=== PATIENT | female | born 1935 | race Caucasian/White ===

== ENCOUNTER 2016-06-27 21:06 | Inpatient (IN) | payer OTHER ==
[~2016-06-27] VITALS: Ht 165.1 cm; Wt 75.3 kg
[~2016-06-27 21:06] MED LIST: ASPEC81 PO; CALCTAB5 PO; CHOL20007 PO; OMEG10007 PO; OMEP20CA59 PO; PRMVC PV; SIMV20TA2 PO
[2016-06-27] MEDS ORDERED: ASPI1TAB83 PO (21:43)
[2016-06-27] MEDS ORDERED: CALCTAB5 PO (21:43)
[2016-06-27] MEDS ORDERED: PRMVC PV (21:43)
[2016-06-27] MEDS ORDERED: HydrALAZINE HCL 20 MG/ML VIAL IV. STA ×2 (21:52→23:02)
--- NOTE | 2016-06-27 21:53 | EMERGENCY ROOM VISIT NOTE ---
History Report prepared by Lokiibcecile: Bernardo Gorman Under the Supervision of: Dr. Dewey Melendrez D.O. First contact with patient: 21:46 Chief Complaint: HYPERTENSION Stated Complaint: DIZZY,HIGH BP History of Present Illness The patient is an 81 year old female who presents to the Emergency Room with complaints of worsening hypertension throughout the day today. The patient is not hypertensive at baseline and does not take any medications for blood pressure. She woke up today feeling dizzy, shaky, and generally weak which prompted her to check her blood pressure. The patient's systolic pressure the first time she measured it was 157. It was 184 when she checked it prior to coming to the ED. She also notes some tingling in the left arm. The patient and her family deny confusion, blurry vision, speech slurring, or difficulty ambulating. She is not on any blood thinners. The patient has a history of UTI. Source of History: patient, family Onset: today Position: other (cardiovascular) Symptom Intensity: up to 184 systolic Quality: other (hypertensive) Timing: worsening Associated Symptoms: + numbness (left arm), + weakness (general) Review of Systems See HPI for pertinent positives and negatives. A total of ten systems were reviewed and were otherwise negative. Past Medical & Surgical Medical Problems: (1) Kidney stones (2) Skin problems (3) Stomach problems (4) Stroke-like symptoms (5) Urinary problems Surgical Problems: (1) H/O lumpectomy (2) H/O: hysterectomy Family History FH: cancer FH: gallbladder disease FH: heart disease Hypertension Kidney disease or stones Social History Smoking Status: Never Smoker Marital Status: Housing Status: lives with significant other Occupation Status: retired Current/Historical Medications Scheduled Aspirin (Aspirin), 81 MG PO DAILY Calcium Carbonate (Caltrate 600), 1,500 MG PO DAILY Cholecalciferol (Vitamin D3), 2,000 UNIT PO DAILY Fish Oil ([place]-3), 4,000 MG PO DAILY Omeprazole (Prilosec), 20 MG PO DAILY Simvastatin (Zocor), 20 MG PO DAILY Scheduled PRN Estrogens, Conjugated (Premarin), 1 APPLN PV HS PRN for DRYNESS Allergies Coded Allergies: Sulfa Drugs (Verified Allergy, Unknown, 06/27/16) Physical Exam Vital Signs Date Time Temp Pulse Resp B/P Pulse Ox O2 Delivery O2 Flow Rate FiO2 06/27/16 23:33 87 20 171/85 95 Room Air 06/27/16 23:00 80 20 170/89 95 Room Air 06/27/16 22:39 79 18 161/97 96 Room Air 06/27/16 22:19 76 20 160/88 92 Room Air 06/27/16 22:01 93 Room Air 06/27/16 22:01 74 18 181/93 93 Room Air 06/27/16 21:29 78 06/27/16 21:27 78 18 181/90 94 Room Air 06/27/16 21:09 36.9 88 20 204/84 94 Room Air Physical Exam GENERAL: Awake, alert, well-appearing, in no distress HENT: Normocephalic, atraumatic. Oropharynx unremarkable. EYES: Normal conjunctiva. Sclera non-icteric. NECK: Supple. No nuchal rigidity. FROM. No JVD. RESPIRATORY: Clear to auscultation. CARDIAC: Regular rate, normal rhythm. Extremities warm and well perfused. Pulses equal. ABDOMEN: Soft, non-distended. No tenderness to palpation. No rebound or guarding. No masses. RECTAL: Deferred. MUSCULOSKELETAL: Chest examination reveals no tenderness. The back is symmetrical on inspection without obvious abnormality. There is no CVA tenderness to palpation. No joint edema. LOWER EXTREMITIES: Calves are equal size bilaterally and non-tender. No edema. No discoloration. NEURO: Normal sensorium. No sensory or motor deficits noted. SKIN: No rash or jaundice noted. PSYCH: Anxious-appearing. Medical Decision & Procedures ER Provider Diagnostic Interpretation: X ray results as stated below per my interpretation and radiologist interpretation. Other radiology results as stated below per my review and radiologist interpretation CHEST ONE VIEW PORTABLE CLINICAL HISTORY: Severe hypertension. COMPARISON STUDY: Chest radiograph July 10, 2013. FINDINGS: Lung volumes are normal. There is no evidence of pulmonary edema. No pneumothorax or pleural effusion is present. Mild bibasilar opacities suggest atelectasis. Cardiac size is at the upper limits of normal. There is no consolidation. IMPRESSION: No acute cardiopulmonary findings. Electronically signed by: Iglesia Adams M.D. 06/27/2016 10:12 PM Dictated Date/Time: 06/27/2016 10:[address] OF THE HEAD WITHOUT CONTRAST CLINICAL HISTORY: Dizzy. Weakness. Hypertension. COMPARISON STUDY: Head CT July 10, 2013. CT DOSE: 614.27 mGy.cm TECHNIQUE: Helical axial images of the head were obtained without IV contrast. Automated exposure control was utilized for the study. FINDINGS: No acute intracranial hemorrhage, midline shift or mass effect is present. Ventricular system is stable. Basilar cisterns are patent. There are no extra axial collections. Mays-white differentiation is preserved. There are no findings to suggest acute dural sinus thrombosis or acute territorial infarct. There is mild mucosal thickening of the right maxillary sinus. There are no significant calvarial abnormalities. Mastoid air cells are clear. IMPRESSION: No acute intracranial findings. Electronically signed by: Iglesia Adams M.D. 06/27/2016 10:42 PM Dictated Date/Time: 06/27/2016 10:37 PM Laboratory Results 06/27/16 21:35 Red Blood Count 4.30, Mean Corpuscular Volume 85.8, Mean Corpuscular Hemoglobin 29.3, Mean Corpuscular Hemoglobin Concent 34.1, Mean Platelet Volume 8.8, Neutrophils (%) (Auto) 42.2, Lymphocytes (%) (Auto) 41.9, Monocytes (%) (Auto) 13.0, Eosinophils (%) (Auto) 2.5, Basophils (%) (Auto) 0.2, Neutrophils # (Auto ) 1.84, Lymphocytes # (Auto) 1.83, Monocytes # (Auto) 0.57, Eosinophils # (Auto ) 0.11, Basophils # (Auto) 0.01 06/27/16 21:35 Test 06/27/16 21:35 06/27/16 21:56 06/27/16 22:25 White Blood Count 4.37 K/uL (4.8-10.8) Red Blood Count 4.30 M/uL (4.2-5.4) Hemoglobin 12.6 g/dL (12.0-16.0) Hematocrit 36.9 % (37-47) Mean Corpuscular Volume 85.8 fL (80-100) Mean Corpuscular Hemoglobin 29.3 pg (25-34) Mean Corpuscular Hemoglobin Concent 34.1 g/dl (32-36) Platelet Count 235 K/uL (130-400) Mean Platelet Volume 8.8 fL (7.4-10.4) Neutrophils (%) (Auto) 42.2 % Lymphocytes (%) (Auto) 41.9 % Monocytes (%) (Auto) 13.0 % Eosinophils (%) (Auto) 2.5 % Basophils (%) (Auto) 0.2 % Neutrophils # (Auto) 1.84 K/uL (1.4-6.5) Lymphocytes # (Auto) 1.83 K/uL (1.2-3.4) Monocytes # (Auto) 0.57 K/uL (0.11-0.59) Eosinophils # (Auto) 0.11 K/uL (0-0.5) Basophils # (Auto) 0.01 K/uL (0-0.2) RDW Standard Deviation 46.2 fL (36.4-46.3) RDW Coefficient of Variation 14.8 % (11.5-14.5) Immature Granulocyte % (Auto) 0.2 % Immature Granulocyte # (Auto) 0.01 K/uL (0.00-0.02) Prothrombin Time 10.5 SECONDS (9.0-12.0) Prothromb Time International Ratio 1.0 (0.9-1.1) Activated Partial Thromboplast Time 26.8 SECONDS (21.0-31.0) Partial Thromboplastin Ratio 1.0 Anion Gap 9.0 mmol/L (3-11) Est Creatinine Clear Calc Drug Dose 40.9 ml/min Estimated GFR () 54.5 Estimated GFR (Non- 47.0 BUN/Creatinine Ratio 11.3 (10-20) Calcium Level 9.1 mg/dl (8.5-10.1) Total Bilirubin 0.3 mg/dl (0.2-1) Direct Bilirubin < 0.1 mg/dl (0-0.2) Aspartate Amino Transf (AST/SGOT) 15 U/L (15-37) Alanine Aminotransferase (ALT/SGPT) 24 U/L (12-78) Alkaline Phosphatase 57 U/L (45-117) Total Protein 7.2 gm/dl (6.4-8.2) Albumin 3.8 gm/dl (3.4-5.0) Bedside Troponin I 0.000 ng/ml (0-0.045) Urine Color YELLOW Urine Appearance CLEAR (CLEAR) Urine pH 7.0 (4.5-7.5) Urine Specific [place] 1.005 (1.000-1.030) Urine Protein NEG (NEG) Urine Glucose (UA) NEG (NEG) Urine Ketones NEG (NEG) Urine Occult Blood NEG (NEG) Urine Nitrite NEG (NEG) Urine Bilirubin NEG (NEG) Urine Urobilinogen NEG (NEG) Urine Leukocyte Esterase NEG (NEG) Laboratory results reviewed by me Medications Administered Medications (Trade) Dose Ordered Sig/Jeanie Route Start Time Stop Time Status Last Admin Dose Admin Hydralazine HCl (HydrALAZINE INJ) 10 mg NOW STAT IV. 06/27/16 21:52 06/27/16 21:53 DC 06/27/16 21:59 10 MG Hydralazine HCl (HydrALAZINE INJ) 10 mg NOW STAT IV. 06/27/16 23:02 06/27/16 23:03 DC 06/27/16 23:19 10 MG ECG Indication: other (hypertension) Rate (beats per minute): 81 Rhythm: normal sinus Findings: no acute ischemic change, no ectopy, other (normal axis, normal intervals) ED Course 2147: The patient was evaluated in room A4b. A complete history and physical exam was performed. 2151: Hydralazine 10 mg IV. 2299: The patient still doesn't feel well. Her blood pressure is still high. 2301: Hydralazine 10 mg IV. 2307: Discussed the case with Kenneth Aguilar Hospitalist. The patient will be evaluated. Medical Decision Differential diagnosis includes hypertensive episode vs crisis vs urgency, TIA, CVA, dehydration, UTI. Reexamination at 2309 patient was given IV hydralazine blood pressure 167/90. Patient has symptoms suggestive of TIA in the past week. Patient will be admitted. Patient currently has an NIH score of 0 she is not a TPA candidate at this time. I discussed the workup with the patient and patient's family at bedside. I discussed workup the hospitalist at 0 Consults Time Called: 2299 Consulting Physician: [facility] Returned Call: [phone]: [facility] The patient will be evaluated. Impression Primary Impression: Hypertension Additional Impression: TIA (transient ischemic attack) Scribe Attestation The scribe's documentation has been prepared under my direction and personally reviewed by me in its entirety. I confirm that the note above accurately reflects all work, treatment, procedures, and medical decision making performed by me. Departure Information Dispostion Being Evaluated By Hospitalist Referrals Iona Joe M.D. (PCP) Patient Instructions [facility] Stroke History Stroke t-PA Criteria Reviewed Does NOT meet criteria for t-PA Reason t-PA Not Given Treatment not indicated Problem Qualifiers Primary Impression: Hypertension Hypertension type: essential hypertension Qualified Codes: I10 - Essential ( primary) hypertension Additional Impression: TIA (transient ischemic attack) Transient cerebral ischemia type: unspecified Qualified Codes: G45.9 - Transient cerebral ischemic attack, unspecified
[2016-06-27 22:07] LABS: BASO % 0.2 %; BASO ABS # 0.01 K/uL (0-0.2); COMPLETE YES; EOS % 2.5 %; HEMATOCRIT 36.9 % (37-47); IG% 0.2 %; LYMPH % 41.9 %; LYMPH ABS # 1.83 K/uL (1.2-3.4); MEAN CELL VOLUME 85.8 fL (80-100); MEAN CORPUSCULAR HEMOGLOBIN 29.3 pg (25-34); MEAN CORPUSCULAR HGB CONC 34.1 g/dl (32-36); MEAN PLATELET VOLUME 8.8 fL (7.4-10.4); NEUT % 42.2 %; PLATELET COUNT 235 K/uL (130-400); WHITE BLOOD COUNT 4.37 K/uL (4.8-10.8)
--- NOTE | 2016-06-27 22:14 | DIAGNOSTIC IMAGING REPORT ---
CHEST ONE VIEW PORTABLE CLINICAL HISTORY: Severe hypertension. COMPARISON STUDY: Chest radiograph July 10, 2013. FINDINGS: Lung volumes are normal. There is no evidence of pulmonary edema. No pneumothorax or pleural effusion is present. Mild bibasilar opacities suggest atelectasis. Cardiac size is at the upper limits of normal. There is no consolidation. IMPRESSION: No acute cardiopulmonary findings. Electronically signed by: Iglesia Adams M.D. 06/27/2016 10:12 PM Dictated Date/Time: 06/27/2016 10:12 PM
[2016-06-27 22:16] LABS: PROTHROMBIN TIME (PATIENT) 10.5 SECONDS (9.0-12.0)
[2016-06-27 22:36] LABS: ALT/SGPT 24 U/L (12-78); BLOOD UREA NITROGEN 12 mg/dl (7-18); BUN/CREATININE RATIO 11.3 (10-20); CARBON DIOXIDE 24 mmol/L (21-32); CHLORIDE 107 mmol/L (98-107); GLUCOSE 107 mg/dl (70-99); POTASSIUM 3.8 mmol/L (3.5-5.1); SODIUM 140 mmol/L (136-145)
[2016-06-27 22:38] LABS: ALKALINE PHOSPHATASE 57 U/L (45-117); AST/SGOT 15 U/L (15-37)
--- NOTE | 2016-06-27 22:43 | DIAGNOSTIC IMAGING REPORT ---
CT OF THE HEAD WITHOUT CONTRAST CLINICAL HISTORY: Dizzy. Weakness. Hypertension. COMPARISON STUDY: Head CT July 10, 2013. CT DOSE: 614.27 mGy.cm TECHNIQUE: Helical axial images of the head were obtained without IV contrast. Automated exposure control was utilized for the study. FINDINGS: No acute intracranial hemorrhage, midline shift or mass effect is present. Ventricular system is stable. Basilar cisterns are patent. There are no extra axial collections. Mays-white differentiation is preserved. There are no findings to suggest acute dural sinus thrombosis or acute territorial infarct. There is mild mucosal thickening of the right maxillary sinus. There are no significant calvarial abnormalities. Mastoid air cells are clear. IMPRESSION: No acute intracranial findings. Electronically signed by: Iglesia Adams M.D. 06/27/2016 10:42 PM Dictated Date/Time: 06/27/2016 10:37 PM
[2016-06-27 22:44] LABS: CALCIUM 9.1 mg/dl (8.5-10.1)
[2016-06-27 22:44] LABS: MANUAL MICROSCOPIC REQUIRED? NO; REVIEW REQ? NO; URINE APPEARANCE CLEAR (CLEAR); URINE BILIRUBIN NEG (NEG); URINE COLOR YELLOW; URINE NITRITE NEG (NEG); URINE SPECIFIC GRAVITY 1.005 (1.000-1.030); UROBILINOGEN NEG (NEG)
--- NOTE | 2016-06-27 23:16 | History and Physical ---
History & Physical Date & Time of Service: Jun 27, 2016 at 23:16 Chief Complaint: Dizzy,High Bp Primary Care Physician: Iona Joe M.D. History of Present Illness Source: patient, family Patient is a 81 yr old female with PMH of HLP, GERD, Nephrolithiasis and Colon polyp presents with history of dizziness and left arm weakness since . Patient states she checked her blood pressure today and was very elevated and so came to ED for evaluation as she does not have history of hypertension. Also states having nausea, chills and feels weak in her legs. Denies any history of fever, headache, blurry vision, chest pain, SOB, palpitations, change in vision , head trauma, fall, bowel/bladder incontinence, problems speech with speech or facial deformity, cough , wheezing but states " I feel funny in my head". Past Medical/Surgical History Medical Problems: (1) Kidney stones Status: Resolved (2) Skin problems Status: Chronic (3) Stomach problems Status: Chronic (4) Urinary problems Status: Chronic Surgical Problems: (1) H/O lumpectomy Status: Resolved (2) H/O: hysterectomy Status: Resolved Family History FH: cancer FH: gallbladder disease FH: heart disease Hypertension Kidney disease or stones Father and Mother: Stomach cancer Social History Smoking Status: Never Smoker Alcohol Use: none Drug Use: none Marital Status: Housing status: lives with family Occupational Status: retired Immunizations History of Influenza Vaccine: Yes History of Tetanus Vaccine?: Yes History of Pneumococcal: 2002 History of Hepatitis B Vaccine: Yes Multi-Drug Resistant Organisms History of MDRO: No Allergies Coded Allergies: Sulfa Drugs (Verified Allergy, Unknown, 06/27/16) Home Medications Scheduled Aspirin (Aspirin), 81 MG PO DAILY Calcium Carbonate (Caltrate 600), 1,500 MG PO DAILY Cholecalciferol (Vitamin D3), 2,000 UNIT PO DAILY Fish Oil ([place]-3), 4,000 MG PO DAILY Omeprazole (Prilosec), 20 MG PO DAILY Simvastatin (Zocor), 20 MG PO DAILY Scheduled PRN Estrogens, Conjugated (Premarin), 1 APPLN PV HS PRN for DRYNESS Review of Systems See HPI for pertinent positives & negatives. A total of 10 systems reviewed and were otherwise negative. Physical Exam Vital Signs Date Time Temp Pulse Resp B/P Pulse Ox O2 Delivery O2 Flow Rate FiO2 06/27/16 22:39 79 18 161/97 96 Room Air 06/27/16 22:19 76 20 160/88 92 Room Air 06/27/16 22:01 93 Room Air 06/27/16 22:01 74 18 181/93 93 Room Air 06/27/16 21:29 78 06/27/16 21:27 78 18 181/90 94 Room Air 06/27/16 21:09 36.9 88 20 204/84 94 Room Air General Appearance: WD/WN, no apparent distress Head: normocephalic, atraumatic Eyes: normal inspection, PERRL, EOMI, sclerae normal ENT: normal ENT inspection, hearing grossly normal Neck: supple, trachea midline Respiratory/Chest: chest non-tender, lungs clear, normal breath sounds, no respiratory distress, no accessory muscle use Cardiovascular: regular rate, rhythm, no edema, no murmur Abdomen/GI: normal bowel sounds, non tender, soft Back: normal inspection Extremities/Musculoskelatal: normal inspection, no pedal edema Neurologic/Psych: helpdesk technician II-XII nml as tested, no motor/sensory deficits, alert, normal mood/affect, normal reflexes, oriented x 3 Skin: normal color, warm/dry Diagnostics Laboratory Results Results Past 24 Hours Test 06/27/16 21:35 06/27/16 21:56 06/27/16 22:25 Range/Units White Blood Count 4.37 4.8-10.8 K/uL Red Blood Count 4.30 4.2-5.4 M/uL Hemoglobin 12.6 12.0-16.0 g/dL Hematocrit 36.9 37-47 % Mean Corpuscular Volume 85.8 80-100 fL Mean Corpuscular Hemoglobin 29.3 25-34 pg Mean Corpuscular Hemoglobin Concent 34.1 32-36 g/dl Platelet Count 235 130-400 K/uL Mean Platelet Volume 8.8 7.4-10.4 fL Neutrophils (%) (Auto) 42.2 % Lymphocytes (%) (Auto) 41.9 % Monocytes (%) (Auto) 13.0 % Eosinophils (%) (Auto) 2.5 % Basophils (%) (Auto) 0.2 % Neutrophils # (Auto) 1.84 1.4-6.5 K/uL Lymphocytes # (Auto) 1.83 1.2-3.4 K/uL Monocytes # (Auto) 0.57 0.11-0.59 K/uL Eosinophils # (Auto) 0.11 0-0.5 K/uL Basophils # (Auto) 0.01 0-0.2 K/uL RDW Standard Deviation 46.2 36.4-46.3 fL RDW Coefficient of Variation 14.8 11.5-14.5 % Immature Granulocyte % (Auto) 0.2 % Immature Granulocyte # (Auto) 0.01 0.00-0.02 K/uL Prothrombin Time 10.5 9.0-12.0 SECONDS Prothromb Time International Ratio 1.0 0.9-1.1 Activated Partial Thromboplast Time 26.8 21.0-31.0 SECONDS Partial Thromboplastin Ratio 1.0 Sodium Level 140 136-145 mmol/L Potassium Level 3.8 3.5-5.1 mmol/L Chloride Level 107 98-107 mmol/L Carbon Dioxide Level 24 21-32 mmol/L Anion Gap 9.0 3-11 mmol/L Blood Urea Nitrogen 12 7-18 mg/dl Creatinine 1.10 0.60-1.20 mg/dl Est Creatinine Clear Calc Drug Dose 40.9 ml/min Estimated GFR () 54.5 Estimated GFR (Non- 47.0 BUN/Creatinine Ratio 11.3 10-20 Random Glucose 107 70-99 mg/dl Calcium Level 9.1 8.5-10.1 mg/dl Total Bilirubin 0.3 0.2-1 mg/dl Direct Bilirubin < 0.1 0-0.2 mg/dl Aspartate Amino Transf (AST/SGOT) 15 15-37 U/L Alanine Aminotransferase (ALT/SGPT) 24 12-78 U/L Alkaline Phosphatase 57 45-117 U/L Total Protein 7.2 6.4-8.2 gm/dl Albumin 3.8 3.4-5.0 gm/dl Bedside Troponin I 0.000 0-0.045 ng/ml Urine Color YELLOW Urine Appearance CLEAR CLEAR Urine pH 7.0 4.5-7.5 Urine Specific [place] 1.005 1.000-1.030 Urine Protein NEG NEG Urine Glucose (UA) NEG NEG Urine Ketones NEG NEG Urine Occult Blood NEG NEG Urine Nitrite NEG NEG Urine Bilirubin NEG NEG Urine Urobilinogen NEG NEG Urine Leukocyte Esterase NEG NEG Diagnostic Radiology CT head: No acute intracranial findings. CXR: No acute cardiopulmonary findings. EKG EKG:NSR Impression Assessment and Plan [place] like symptoms: R/O acute CVA Presented with Left arm weakness, dizziness Not a candidate for tPA No focal deficits on exam Admit in Tele CT head: showed no acute pathology Stroke work up including lipid panel, A1C, MRI Brain, Carotid duplex, ECHO Speech and swallow eval Continue aspirin, Zocor Neuro checks, Neurology consult PT/OT Allow permissive HTN in setting of ruling out acute CVA HLP: Check lipid panel Continue Zocor HTN: Elevated Allow permissive HTN in setting of ruling out acute CVA GERD: Continue PPI H/O Nephrolithiasis and Colon polyp Stable DVT Px: Heparin SQ code status: full code Disposition: Admit in Tele
[2016-06-28] VITALS (7 sets, daily range): BP systolic 121–164; BP diastolic 69–77; PULSE 66–90; TEMP 36.6–36.9; O2SAT 92–95; Ht 165.1 cm; Wt 75.3 kg
[2016-06-28] MEDS ORDERED: PHARMACIST DISCHARGE MED REC CONSULT PRN
[2016-06-28] MEDS ORDERED: ASPIRIN 324 MG CHEW ONE (00:10)
[2016-06-28] MEDS: ONDANSETRON INJ 2 MG/ML 2 ML VIAL IV PRN ×2 (00:13→12:29)
[2016-06-28] MEDS ORDERED: ASPIRIN 81 MG CHEW PO ONE (00:15)
[2016-06-28] MEDS ORDERED: LORAZEPAM 2 MG/ML 1 ML VIAL ONE (00:31)
[2016-06-28] MEDS ORDERED: NURSING VERBAL MED ORDER ONE (00:45)
[2016-06-28] MEDS ORDERED: GADAVIST IV PRN (02:00)
[2016-06-28] MEDS: ACETAMINOPHEN 325 MG TAB PO PRN ×3 (03:43→21:43)
[2016-06-28] MEDS ORDERED: IV FLUIDS COMPLETED PRN (04:15)
[2016-06-28 06:13] LABS: BASO % 0.2 %; BASO ABS # 0.01 K/uL (0-0.2); COMPLETE YES; EOS % 1.3 %; IG% 0.2 %; LYMPH ABS # 1.59 K/uL (1.2-3.4); MEAN CELL VOLUME 85.8 fL (80-100); MEAN CORPUSCULAR HEMOGLOBIN 28.5 pg (25-34); MEAN CORPUSCULAR HGB CONC 33.2 g/dl (32-36); MEAN PLATELET VOLUME 8.5 fL (7.4-10.4); NEUT % 54.3 %; PLATELET COUNT 218 K/uL (130-400); RED BLOOD COUNT 4.31 M/uL (4.2-5.4); WHITE BLOOD COUNT 4.68 K/uL (4.8-10.8)
[2016-06-28 06:45] LABS: BUN/CREATININE RATIO 13.1 (10-20); CALCIUM 8.7 mg/dl (8.5-10.1); CREATININE 0.85 mg/dl (0.60-1.20)
[2016-06-28 06:47] LABS: ESTIMATED AVERAGE GLUCOSE 123 mg/dl; HA1C FLAG Normal (Normal)
[2016-06-28 06:48] LABS: CHOLESTEROL/HDL RATIO 4.6
--- NOTE | 2016-06-28 06:51 | DIAGNOSTIC IMAGING REPORT ---
BILATERAL CAROTID DOPPLER STUDY HISTORY: Mental status change Stroke COMPARISON: None. TECHNIQUE: Real-time, grayscale, and color Doppler sonography of the carotid arteries was performed. Imaging reviewed in the transverse and longitudinal planes. All measurements were calculated based on NASCET criteria. FINDINGS: Antegrade flow is seen in the bilateral vertebral arteries. The brachial pressures are hemodynamically similar. The peak systolic velocity within the right ICA is 106. The right systolic ratio is 0.8. The peak systolic velocity within the left ICA is 139. The left systolic ratio is 1.2. 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 Otherwise negative study Electronically signed by: Jorge L Mosqueda M.D. 06/28/2016 6:50 AM Dictated Date/Time: 06/28/2016 6:49 AM
--- NOTE | 2016-06-28 06:55 | DIAGNOSTIC IMAGING REPORT ---
MRI OF THE BRAIN WITHOUT AND WITH IV CONTRAST CLINICAL HISTORY: Stroke like symptoms ischemia. Mental status change. COMPARISON STUDY: No previous studies for comparison. TECHNIQUE: Utilizing a 1.5 Melonie magnet and dedicated coil, multiplanar, multiecho imaging of the brain was performed pre and postcontrast administration. IV administration of 8 mL of Gadavist contrast was uneventful. FINDINGS: No evidence for an acute ischemic insult. Signal characteristics indicate a component of chronic small vessel change of aging. Ventricular system is midline. Sella and parasellar regions are unremarkable in postcontrast images are considered negative for an enhancing lesion. IMPRESSION: Negative MRI of the brain for age Electronically signed by: Jorge L Mosqueda M.D. 06/28/2016 6:53 AM Dictated Date/Time: 06/28/2016 6:50 AM
[2016-06-28] MEDS: HEPARIN SOD 5000 UNIT/0.5 ML CARP SQ SCH ×3 (08:19→21:52)
[2016-06-28] MEDS: OMEGA-3 (PURIFIED FISH OIL) 1 GM CAP PO SCH (08:20)
[2016-06-28] MEDS: PANTOprazole SOD 40 MG TAB PO SCH (08:21)
[2016-06-28] MEDS: ASPIRIN 81 MG ECTAB PO SCH (08:22)
--- NOTE | 2016-06-28 09:01 | ECHOCARDIOGRAM REPORT ---
*NOTICE TO RECEIVING [facility] This information is strictly Confidential and protected under [place] law. [place] law prohibits you from making any further disclosure of this information unless further disclosure is expressly permitted by the written consent of the person to whom it pertains or is authorized by law. A general authorization for the release of medical or other information is not sufficient for this purpose. Hospital accepts no responsibility if the information is made available to any other person, INCLUDING THE PATIENT. Interpretation Summary * Name: DANNI ALTAMIRANO Study Date: 06/28/2016 06:39 AM BP: 164/76 mmHg * Patient Location: [facility] [place] HR: 75 * : 1935 (M/d/yyyy) Gender: Female Height: 64 in * Age: 81 yrs Ethnicity: [place] Weight: 174 lb * Ordering Physician: SIMON RAZA MD * Performed By: Lashae Weathers RCS * * Reason For Study: STROKE LIKE SYMPTOMS * BSA: 1.8 m2 * -- Conclusions -- * Jumprope intraatrial septum with a positive microcav study consistent with a PFO. * The left ventricular cavity is small. * There is moderate concentric left ventricular hypertrophy. * Ejection Fraction = 60-65%. * The right ventricular systolic function is normal. * The left atrium is moderately dilated. * The right atrium is moderately dilated. * Grade I diastolic dysfunction, (abnormal relaxation pattern). Procedure Details * A complete two-dimensional transthoracic echocardiogram was performed (2D, M-mode, Doppler and color flow Doppler). * A saline contrast injection was performed to assess for cardiac shunting. * The injection was performed through an intravenous line in the right arm. * The attending nurse who injected the saline contrast was ASHISH STERN RN. * A total of 30 cc of agitated saline was given. Left Ventricle * The left ventricular cavity is small. * There is moderate concentric left ventricular hypertrophy. * Ejection Fraction = 60-65%. * Left ventricular systolic function is normal. * The left ventricular wall motion is normal. Right Ventricle * The right ventricle is normal size. * The right ventricular systolic function is normal. Atria * The left atrium is moderately dilated. * The right atrium is moderately dilated. * Jumprope intraatrial septum with a positive microcav study consistent with a PFO. Mitral Valve * The mitral valve is grossly normal. * Significant mitral regurgitation is absent. Tricuspid Valve * The tricuspid valve anatomy is normal. * Significant tricuspid regurgitation is absent. Aortic Valve * The aortic valve is tricuspid. The leaflet thickness if normal. There is no aortic stenosis, and no significant insufficiency. * Aortic stenosis is absent. * There is no significant aortic regurgitation. Pulmonic Valve * The pulmonic valve is not well visualized. * There is no significant pulmonary regurgitation. Great Vessels * The aortic root and proximal ascending aorta are normal sized. Pericardium/Pleural * There is no pericardial effusion. Left Ventricular Diastolic Function * Grade I diastolic dysfunction, (abnormal relaxation pattern). MMode 2D Measurements and Calculations IVSd 1.6 cm IVSs 1.6 cm LVIDd 3.0 cm LVIDs 2.3 cm LVPWd 1.5 cm LVPWs 1.5 cm IVS/LVPW 1.1 FS 20.7 % EDV(Teich) 33.9 ml ESV(Teich) 19.1 ml EF(Teich) 43.7 % EDV(cubed) 26.0 ml ESV(cubed) 13.0 ml EF(cubed) 50.1 % % IVS thick -3.52 % % LVPW thick 6.0 % LV mass(C)d 163.1 grams LV mass(C)dI 88.5 grams/m\S\2 LV mass(C)s 125.7 grams LV mass(C)sI 68.2 grams/m\S\2 SV(Teich) 14.8 ml SI(Teich) 8.0 ml/m\S\2 SV(cubed) 13.0 ml SI(cubed) 7.1 ml/m\S\2 Ao root diam 3.8 cm Ao root area 11.1 cm\S\2 ACS 1.7 cm LA dimension 4.1 cm LA/Ao 1.1 LVOT diam 1.9 cm LVOT area 2.8 cm\S\2 LVAd ap4 26.6 cm\S\2 LVLd ap4 7.2 cm EDV(MOD-sp4) 80.3 ml EDV(sp4-el) 83.3 ml LVAs ap4 16.9 cm\S\2 LVLs ap4 6.0 cm ESV(MOD-sp4) 39.4 ml ESV(sp4-el) 40.6 ml EF(MOD-sp4) 50.9 % EF(sp4-el) 51.2 % LVAd ap2 21.1 cm\S\2 LVLd ap2 6.6 cm EDV(MOD-sp2) 54.8 ml EDV(sp2-el) 57.1 ml LVAs ap2 15.8 cm\S\2 LVLs ap2 6.3 cm ESV(MOD-sp2) 32.1 ml ESV(sp2-el) 33.9 ml EF(MOD-sp2) 41.4 % EF(sp2-el) 40.6 % LVLd %diff -9.51 % EDV(MOD-bp) 70.3 ml LVLs %diff 4.8 % ESV(MOD-bp) 36.5 ml EF(MOD-bp) 48.1 % SV(MOD-sp4) 40.9 ml SI(MOD-sp4) 22.2 ml/m\S\2 SV(MOD-sp2) 22.7 ml SI(MOD-sp2) 12.3 ml/m\S\2 SV(MOD-bp) 33.8 ml SI(MOD-bp) 18.4 ml/m\S\2 SV(sp4-el) 42.6 ml SI(sp4-el) 23.1 ml/m\S\2 SV(sp2-el) 23.2 ml SI(sp2-el) 12.6 ml/m\S\2 Doppler Measurements and Calculations MV E max fer 70.6 cm/sec MV A max fer 100.8 cm/sec MV E/A 0.70 MV P1/2t max fer 74.2 cm/sec MV P1/2t 85.4 msec MVA(P1/2t) 2.6 cm\S\2 MV dec slope 254.2 cm/sec\S\2 MV dec time 0.28 sec Ao V2 max 128.8 cm/sec Ao max PG 6.6 mmHg Ao max PG (full) -0.12 mmHg SOFIA(V,A) 2.9 cm\S\2 SOFIA(V,D) 2.9 cm\S\2 LV V1 max PG 6.8 mmHg LV V1 max 130.0 cm/sec PA V2 max 95.3 cm/sec PA max PG 3.6 mmHg
--- NOTE | 2016-06-28 11:09 | Progress Note ---
Medicine Progress Note Date & Time of Visit: June 28, 2016 at 10:59. Subjective patient seen resting in bed states she feels slightly improved today no dizziness but head still feels "heavy", denies rhinorrhea, nasal congestion, cough, sore throat denies chest pain, dyspnea, nausea, palpitations no abdominal pain, changes with urination or BMs no focal neuro symptoms admits to be doing continuous household cleaning, lifting for the past month, poor quality of sleep, also worried about with prostate cancer Objective Last 8 Hrs Date Time Temp Pulse Resp B/P Pulse Ox O2 Delivery O2 Flow Rate FiO2 06/28/16 08:00 Room Air 06/28/16 07:26 36.6 72 18 138/76 95 Room Air 06/28/16 05:00 82 148/72 06/28/16 04:38 Room Air Physical Exam: General- oriented x 3, not in distress, speaks in sentences Head- atraumatic Eyes- EOMI, anicteric ENT- oropharynx clear Neck- supple, no JVD, no adenopathy, no thyromegaly no bruits appreciated Lungs- clear breath sounds bilaterally, no rales/wheezes Heart- normal rate, regular rhythm; no murmurs Abdomen- normal bowel sounds, soft, nontender Extremities- no pretibial edema, no calf tenderness Neuro- alert, oriented x 3; EOMI; no facial palsy; no dysarthria; motor 5/5 bilaterally; sensation 100% no other gross focal deficits Skin- warm & dry Laboratory Results: Last 24 Hours Test 06/27/16 21:35 06/27/16 21:56 06/27/16 22:25 06/28/16 05:56 White Blood Count 4.37 K/uL 4.68 K/uL Red Blood Count 4.30 M/uL 4.31 M/uL Hemoglobin 12.6 g/dL 12.3 g/dL Hematocrit 36.9 % 37.0 % Mean Corpuscular Volume 85.8 fL 85.8 fL Mean Corpuscular Hemoglobin 29.3 pg 28.5 pg Mean Corpuscular Hemoglobin Concent 34.1 g/dl 33.2 g/dl Platelet Count 235 K/uL 218 K/uL Mean Platelet Volume 8.8 fL 8.5 fL Neutrophils (%) (Auto) 42.2 % 54.3 % Lymphocytes (%) (Auto) 41.9 % 34.0 % Monocytes (%) (Auto) 13.0 % 10.0 % Eosinophils (%) (Auto) 2.5 % 1.3 % Basophils (%) (Auto) 0.2 % 0.2 % Neutrophils # (Auto) 1.84 K/uL 2.54 K/uL Lymphocytes # (Auto) 1.83 K/uL 1.59 K/uL Monocytes # (Auto) 0.57 K/uL 0.47 K/uL Eosinophils # (Auto) 0.11 K/uL 0.06 K/uL Basophils # (Auto) 0.01 K/uL 0.01 K/uL RDW Standard Deviation 46.2 fL 46.8 fL RDW Coefficient of Variation 14.8 % 14.9 % Immature Granulocyte % (Auto) 0.2 % 0.2 % Immature Granulocyte # (Auto) 0.01 K/uL 0.01 K/uL Prothrombin Time 10.5 SECONDS Prothromb Time International Ratio 1.0 Activated Partial Thromboplast Time 26.8 SECONDS Partial Thromboplastin Ratio 1.0 Sodium Level 140 mmol/L 142 mmol/L Potassium Level 3.8 mmol/L 4.0 mmol/L Chloride Level 107 mmol/L 109 mmol/L Carbon Dioxide Level 24 mmol/L 25 mmol/L Anion Gap 9.0 mmol/L 8.0 mmol/L Blood Urea Nitrogen 12 mg/dl 11 mg/dl Creatinine 1.10 mg/dl 0.85 mg/dl Est Creatinine Clear Calc Drug Dose 40.9 ml/min 53.0 ml/min Estimated GFR () 54.5 74.5 Estimated GFR (Non- 47.0 64.3 BUN/Creatinine Ratio 11.3 13.1 Random Glucose 107 mg/dl 109 mg/dl Calcium Level 9.1 mg/dl 8.7 mg/dl Total Bilirubin 0.3 mg/dl Direct Bilirubin < 0.1 mg/dl Aspartate Amino Transf (AST/SGOT) 15 U/L Alanine Aminotransferase (ALT/SGPT) 24 U/L Alkaline Phosphatase 57 U/L Total Protein 7.2 gm/dl Albumin 3.8 gm/dl Bedside Troponin I 0.000 ng/ml Urine Color YELLOW Urine Appearance CLEAR Urine pH 7.0 Urine Specific [place] 1.005 Urine Protein NEG Urine Glucose (UA) NEG Urine Ketones NEG Urine Occult Blood NEG Urine Nitrite NEG Urine Bilirubin NEG Urine Urobilinogen NEG Urine Leukocyte Esterase NEG Estimated Average Glucose 123 mg/dl Hemoglobin A1c 5.9 % Triglycerides Level 272 mg/dl Cholesterol Level 215 mg/dl HDL Cholesterol 47 mg/dl LDL Cholesterol, Calculated 114 mg/dl VLDL Cholesterol, Calculated 54 mg/dl Cholesterol/HDL Ratio 4.6 Assessment & Plan 81 year old female with history of Dyslipidemia, GERD, presenting with dizziness and elevated blood pressure. HYPERTENSIVE URGENCY no history of HTN admits to doing a lot of household work, poor sleep recently - required 2 doses of Hydralazine 10mg IV last night - currently BP is improving - check TSH monitor BP may need to add BP medication if HTN is persistent, as well as work up for secondary hypertension STROKE LIKE SYMPTOMS POSSIBLE TIA? IN THE SETTING OF PFO Presented with Left arm weakness, dizziness - already on aspirin 81mg and Simvastatin 20mg daily CT head: showed no acute pathology Brain MRI: no acute process Carotid US: 30-40% stenosis Left ICA Echo: (+ )PFO -- symptoms have resolved -- continue Aspirin, Zocor Neurology consulted DYLIPIDEMIA Lipid panel as noted above Continue Zocor GERD: Continue PPI H/O Nephrolithiasis and Colon polyp Stable DVT Px: Heparin SQ code status: full code Disposition: lives at home with awaiting PT eval anticipate d/c home when medically stable Current Inpatient Medications: Current Inpatient Medications Medications (Trade) Dose Ordered Sig/Jeanie Route Start Time Stop Time Status Last Admin Dose Admin Miscellaneous Information (Pharmacist Discharge Med Rec Consult) 1 ea UD PRN N/A 06/28/16 00:00 07/28/16 00:00 Heparin Sodium (Porcine) (Heparin Sq 5000 Unit/0.5ml) 5,000 unit Q8H SQ 06/28/16 06:00 07/28/16 05:59 06/28/16 08:19 5,000 UNIT Acetaminophen (Tylenol Tab) 650 mg Q4H PRN PO 06/28/16 00:00 07/28/16 00:00 06/28/16 08:13 650 MG Ondansetron HCl (Zofran Inj) 4 mg Q6H PRN IV 06/28/16 00:00 07/28/16 00:00 06/28/16 00:13 4 MG Aspirin (Ecotrin Tab) 81 mg DAILY PO 06/28/16 09:00 07/28/16 08:59 06/28/16 08:22 81 MG Fish Oil ([place]-3 (Purified Fish Oil) Cap) 4 gm DAILY PO 06/28/16 09:00 07/28/16 08:59 06/28/16 08:20 4 GM Simvastatin (Zocor Tab) 20 mg HS PO 06/28/16 21:00 07/28/16 20:59 06/28/16 08:22 20 MG Pantoprazole Sodium (Protonix Tab) 40 mg DAILY PO 06/28/16 09:00 07/28/16 08:59 06/28/16 08:21 40 MG Gadobutrol (Gadavist) 7.4 mmol UD PRN IV 06/28/16 02:00 07/02/16 01:59 Miscellaneous (Iv Fluids Completed) 1 ea PRN PRN N/A 06/28/16 04:15 06/28/17 04:14
--- NOTE | 2016-06-28 15:27 | Neurology Consultation ---
Neurology Consultation Date of Consultation: June 28, 2016. Attending Physician: Kb Fernandez MD Primary Care Physician: Iona Joe M.D. Reason for Consultation: stroke like symptoms History of Present Illness Source: patient, spouse Amy Haddad is a 81 yr old female with PMH - GERD, Nephrolithiasis and Colon polyp , DL, presents with history head sensation last and then returned last night accompanied by left arm numbness tingling and weakness. She checked her blood pressure yesterday and was very elevated 150/80 but then repeated it and it was 180/100. She state she also started feeling weak in her legs. She state she didn't have a headache until they gave her blood pressure medication in the ED. She states the weakness and numbness and tingling in her arm has resolved but she still feels funny in her head and she still feel wobbly when she stands. Denies any history of fever, headache, blurry vision, chest pain, SOB, palpitations, change in vision, head trauma, fall, bowel/bladder incontinence, slurred speech, swallowing difficulties. Past Medical/Surgical History Medical Problems: (1) Hypertension Status: Acute (2) TIA (transient ischemic attack) Status: Acute Social History Smoking Status: Never smoker Alcohol Use: none Drug Use: none Marital Status: Housing Status: lives with significant other Occupation Status: retired Allergies Coded Allergies: Sulfa Drugs (Verified Allergy, Unknown, 06/27/16) Current Inpatient Medications Current Inpatient Medications Medications (Trade) Dose Ordered Sig/Jeanie Route Start Time Stop Time Status Last Admin Dose Admin Miscellaneous Information (Pharmacist Discharge Med Rec Consult) 1 ea UD PRN N/A 06/28/16 00:00 07/28/16 00:00 Heparin Sodium (Porcine) (Heparin Sq 5000 Unit/0.5ml) 5,000 unit Q8H SQ 06/28/16 06:00 07/28/16 05:59 06/28/16 08:19 5,000 UNIT Acetaminophen (Tylenol Tab) 650 mg Q4H PRN PO 06/28/16 00:00 07/28/16 00:00 06/28/16 08:13 650 MG Ondansetron HCl (Zofran Inj) 4 mg Q6H PRN IV 06/28/16 00:00 07/28/16 00:00 06/28/16 12:29 4 MG Aspirin (Ecotrin Tab) 81 mg DAILY PO 06/28/16 09:00 07/28/16 08:59 06/28/16 08:22 81 MG Fish Oil ([place]-3 (Purified Fish Oil) Cap) 4 gm DAILY PO 06/28/16 09:00 07/28/16 08:59 06/28/16 08:20 4 GM Simvastatin (Zocor Tab) 20 mg HS PO 06/28/16 21:00 07/28/16 20:59 06/28/16 08:22 20 MG Pantoprazole Sodium (Protonix Tab) 40 mg DAILY PO 06/28/16 09:00 07/28/16 08:59 06/28/16 08:21 40 MG Gadobutrol (Gadavist) 7.4 mmol UD PRN IV 06/28/16 02:00 07/02/16 01:59 Miscellaneous (Iv Fluids Completed) 1 ea PRN PRN N/A 06/28/16 04:15 06/28/17 04:14 Physical Exam Vital Signs (Past 24 Hrs): Date Time Temp Pulse Resp B/P Pulse Ox O2 Delivery O2 Flow Rate FiO2 06/28/16 12:00 Room Air 06/28/16 11:44 36.9 69 16 143/74 93 Room Air 06/28/16 08:00 Room Air 06/28/16 07:26 36.6 72 18 138/76 95 Room Air 06/28/16 05:00 82 148/72 06/28/16 04:38 Room Air 06/28/16 02:15 36.9 90 22 164/76 93 Room Air 06/28/16 00:43 88 20 161/84 94 06/28/16 00:23 97 16 167/89 95 Room Air 06/27/16 23:33 87 20 171/85 95 Room Air 06/27/16 23:00 80 20 170/89 95 Room Air 06/27/16 22:39 79 18 161/97 96 Room Air 06/27/16 22:19 76 20 160/88 92 Room Air 06/27/16 22:01 93 Room Air 06/27/16 22:01 74 18 181/93 93 Room Air 06/27/16 21:29 78 06/27/16 21:27 78 18 181/90 94 Room Air 06/27/16 21:09 36.9 88 20 204/84 94 Room Air Physical Exam: Constitutional: appearance nourished, healthy and normal Ears, Nose, Mouth and Throat: mucous membranes moist, no injection and skin normal, eyes normal Cardiovascular: normal S-1 and S-2 and regular rate and rhythm Respiratory: clear to auscultation (CTA) and no rales, rhonchi or wheeze Musculoskeletal: no peripheral edema and good distal pulses Skin: no stigmata of neurocutaneous disease noted and normal and intact Eyes: extraocular muscles intact (EOMI) and pupils equal, round and reactive to light (PERRL) NEUROLOGIC EXAMINATION: Mental status: Alert and interactive Oriented to full date and location Oriented to person Speech fluent with no evidence of aphasia Cranial Nerves smile eye brow raise symmetric, tongue midline Reflexes: Deep tendon reflexes were symmetrical and graded 2/5. Plantar responses were flexor. Sensory: to light or cool touch Coordination: finger to nose without bipass no tremor Gait/Stance: Posture lying in bed Motor: Negative for pronator drift of out stretched arms with eyes closed. Strength: biceps triceps hand credit authorizer intrinsic 5/5 bilaterally, hip flex plantar flex ext bilaterally 5/5 Laboratory Results Past 24 Hours: 06/28/16 05:56 Red Blood Count 4.31, Mean Corpuscular Volume 85.8, Mean Corpuscular Hemoglobin 28.5, Mean Corpuscular Hemoglobin Concent 33.2, Mean Platelet Volume 8.5, Neutrophils (%) (Auto) 54.3, Lymphocytes (%) (Auto) 34.0, Monocytes (%) (Auto) 10.0, Eosinophils (%) (Auto) 1.3, Basophils (%) (Auto) 0.2, Neutrophils # (Auto ) 2.54, Lymphocytes # (Auto) 1.59, Monocytes # (Auto) 0.47, Eosinophils # (Auto ) 0.06, Basophils # (Auto) 0.01 06/28/16 05:56 Test 06/27/16 21:35 06/27/16 21:56 06/27/16 22:25 06/28/16 05:56 Prothrombin Time 10.5 SECONDS (9.0-12.0) Prothromb Time International Ratio 1.0 (0.9-1.1) Activated Partial Thromboplast Time 26.8 SECONDS (21.0-31.0) Partial Thromboplastin Ratio 1.0 Total Bilirubin 0.3 mg/dl (0.2-1) Direct Bilirubin < 0.1 mg/dl (0-0.2) Aspartate Amino Transf (AST/SGOT) 15 U/L (15-37) Alanine Aminotransferase (ALT/SGPT) 24 U/L (12-78) Alkaline Phosphatase 57 U/L (45-117) Total Protein 7.2 gm/dl (6.4-8.2) Albumin 3.8 gm/dl (3.4-5.0) Bedside Troponin I 0.000 ng/ml (0-0.045) Urine Color YELLOW Urine Appearance CLEAR (CLEAR) Urine pH 7.0 (4.5-7.5) Urine Specific [place] 1.005 (1.000-1.030) Urine Protein NEG (NEG) Urine Glucose (UA) NEG (NEG) Urine Ketones NEG (NEG) Urine Occult Blood NEG (NEG) Urine Nitrite NEG (NEG) Urine Bilirubin NEG (NEG) Urine Urobilinogen NEG (NEG) Urine Leukocyte Esterase NEG (NEG) White Blood Count 4.68 K/uL (4.8-10.8) Red Blood Count 4.31 M/uL (4.2-5.4) Hemoglobin 12.3 g/dL (12.0-16.0) Hematocrit 37.0 % (37-47) Mean Corpuscular Volume 85.8 fL (80-100) Mean Corpuscular Hemoglobin 28.5 pg (25-34) Mean Corpuscular Hemoglobin Concent 33.2 g/dl (32-36) Platelet Count 218 K/uL (130-400) Mean Platelet Volume 8.5 fL (7.4-10.4) Neutrophils (%) (Auto) 54.3 % Lymphocytes (%) (Auto) 34.0 % Monocytes (%) (Auto) 10.0 % Eosinophils (%) (Auto) 1.3 % Basophils (%) (Auto) 0.2 % Neutrophils # (Auto) 2.54 K/uL (1.4-6.5) Lymphocytes # (Auto) 1.59 K/uL (1.2-3.4) Monocytes # (Auto) 0.47 K/uL (0.11-0.59) Eosinophils # (Auto) 0.06 K/uL (0-0.5) Basophils # (Auto) 0.01 K/uL (0-0.2) RDW Standard Deviation 46.8 fL (36.4-46.3) RDW Coefficient of Variation 14.9 % (11.5-14.5) Immature Granulocyte % (Auto) 0.2 % Immature Granulocyte # (Auto) 0.01 K/uL (0.00-0.02) Anion Gap 8.0 mmol/L (3-11) Est Creatinine Clear Calc Drug Dose 53.0 ml/min Estimated GFR () 74.5 Estimated GFR (Non- 64.3 BUN/Creatinine Ratio 13.1 (10-20) Estimated Average Glucose 123 mg/dl Hemoglobin A1c 5.9 % (4.5-5.6) Calcium Level 8.7 mg/dl (8.5-10.1) Triglycerides Level 272 mg/dl (0-150) Cholesterol Level 215 mg/dl (0-200) HDL Cholesterol 47 mg/dl LDL Cholesterol, Calculated 114 mg/dl VLDL Cholesterol, Calculated 54 mg/dl Cholesterol/HDL Ratio 4.6 Thyroid Stimulating Hormone (TSH) 3.400 uIu/ml (0.300-4.500) Imaging TTE- Jumprope intraatrial septum with a positive microcav study consistent with a PFO. The left ventricular cavity is small. There is moderate concentric left ventricular hypertrophy. Ejection Fraction = 60-65%. The right ventricular systolic function is normal. The left atrium is moderately dilated. The right atrium is moderately dilated. Grade I diastolic dysfunction, (abnormal relaxation pattern). MRI brain with and without contrast- FINDINGS: No evidence for an acute ischemic insult. Signal characteristics indicate a component of chronic small vessel change of aging. Ventricular system is midline. Sella and parasellar regions are unremarkable in postcontrast images are considered negative for an enhancing lesion. carotid doppler- 30/40% narrowing left internal carotid artery. Otherwise negative study CT head- No acute intracranial findings. Impression 81 year old female with weakness, numbness and tingling in left arm, elevated blood pressure, heavy feeling in head Plan 1. optimize blood pressure and lipids LDL < 70 2. she was previously on aspirin 81 mg would add plavix 75 mg daily 3. PT/OT/speech for discharge needs 4. TTE with PFO will need cardionet or ZIO if no irregular heart beat seen in hospital- if cards thinks appropriate 5. MRI with no evidence of CVA 6. venous doppler LE bilaterally (PFO) 7. carotid doppler -ordered 8. cardiology consult if SNEHA is needed I have seen and discussed above patient with Dr Terry Amador, neurology I have sen this woman reviewed the above note, discussed the case with Celia Thomas and have reviewed the labs, imaging studies and the echo Suspect a tia right hemisphere with negative mri and now normal exam with a pfo there is obviously concern for potential paradoxical embolization so will get duplex upper and lower extremity venous system and have cardiology render an opinion as to whether a SNEHA would help define the anatomy better and whether an outpatient cardionet for paroxysmal atrial fibrillation would be of value In the interim add plavix to asa Terry Amador MD
[2016-06-28] MEDS ORDERED: CLOPIDOGREL BISULFATE 75 MG TAB PO ONE (16:15)
--- NOTE | 2016-06-28 18:14 | DIAGNOSTIC IMAGING REPORT ---
ULTRASOUND BILATERAL UPPER EXTREMITY VENOUS CLINICAL HISTORY: Stroke. Patent foramen ovale. Clinical concern for deep venous thrombosis. COMPARISON STUDY: No priors. TECHNIQUE: Real-time, grayscale, and color Doppler sonography of the deep veins of the right and left upper extremities is performed. Compression and augmentation were utilized. FINDINGS: There is no sonographic evidence of deep venous thrombosis identified in the right or left upper extremity. The internal jugular, axillary, and brachial veins are patent and normally compressible bilateral. Normal venous waveforms and augmentation are seen within both subclavian veins. The cephalic and basilic veins are clear in both arms. The visualized radial and ulnar veins are patent bilateral. IMPRESSION: There is no sonographic evidence of deep venous thrombosis identified in the right or left upper extremity. Electronically signed by: Mian Delgado M.D. 06/28/2016 6:12 PM Dictated Date/Time: 06/28/2016 6:11 PM
--- NOTE | 2016-06-28 18:15 | DIAGNOSTIC IMAGING REPORT ---
ULTRASOUND BILATERAL LOWER EXTREMITY VENOUS CLINICAL HISTORY: Stroke. Patent foramina ovale. Clinical concern for deep venous thrombosis. COMPARISON STUDY: No priors. TECHNIQUE: Real-time, grayscale, and color Doppler sonography of the deep veins of the right and left lower extremity was performed from the inguinal crease to the calf. Compression and augmentation were utilized. FINDINGS: There is no sonographic evidence of deep venous thrombosis identified in the right or left lower extremity. The common femoral, superficial femoral, and popliteal veins are patent and normally compressible bilaterally. The greater saphenous vein and the profunda femoris vein at the junction with the common femoral vein are clear in both legs. The visualized calf veins are patent bilaterally. IMPRESSION: There is no sonographic evidence of deep venous thrombosis identified in the right or left lower extremity. Electronically signed by: Mian Delgado M.D. 06/28/2016 6:13 PM Dictated Date/Time: 06/28/2016 6:13 PM
[2016-06-28 19:59] LABS: URINE APPEARANCE CLEAR (CLEAR); URINE BILIRUBIN NEG (NEG); URINE COLOR YELLOW; URINE EPITHELIAL CELL AUTO 0-5 /lpf (0-5); URINE NITRITE NEG (NEG); URINE SPECIFIC GRAVITY 1.008 (1.000-1.030); UROBILINOGEN NEG (NEG)
[2016-06-28 20:03] LABS: MANUAL MICROSCOPIC REQUIRED? NO; REVIEW REQ? NO
[2016-06-28] MEDS ORDERED: SIMVASTATIN 20 MG TAB PO SCH (21:00)
[2016-06-29 04:55] VITALS: BP 128/69; PULSE 65; TEMP 36.9; O2SAT 93
[2016-06-29] MEDS: HEPARIN SOD 5000 UNIT/0.5 ML CARP SQ SCH ×2 (05:28→14:00)
[2016-06-29 05:34] LABS: HEMATOCRIT 38.1 % (37-47); MEAN CELL VOLUME 87.2 fL (80-100); MEAN CORPUSCULAR HEMOGLOBIN 28.8 pg (25-34); MEAN CORPUSCULAR HGB CONC 33.1 g/dl (32-36); MEAN PLATELET VOLUME 8.3 fL (7.4-10.4); PLATELET COUNT 202 K/uL (130-400); RED BLOOD COUNT 4.37 M/uL (4.2-5.4); WHITE BLOOD COUNT 4.18 K/uL (4.8-10.8)
[2016-06-29 05:52] LABS: BASO % 0.2 %; BASO ABS # 0.01 K/uL (0-0.2); COMPLETE YES; EOS % 1.9 %; IG% 0.2 %; LYMPH ABS # 2.09 K/uL (1.2-3.4); MONO % 9.6 %; NEUT % 38.1 %
[2016-06-29 05:59] LABS: BUN/CREATININE RATIO 15.6 (10-20); CALCIUM 8.7 mg/dl (8.5-10.1); CREATININE 0.98 mg/dl (0.60-1.20); POTASSIUM 4.1 mmol/L (3.5-5.1)
[2016-06-29] MEDS: OMEGA-3 (PURIFIED FISH OIL) 1 GM CAP PO SCH (07:47)
[2016-06-29] MEDS: ASPIRIN 81 MG ECTAB PO SCH (07:48)
[2016-06-29] MEDS: PANTOprazole SOD 40 MG TAB PO SCH (07:49)
[2016-06-29 07:54] VITALS: BP 124/70; PULSE 64; TEMP 36.7; O2SAT 94
[2016-06-29] MEDS ORDERED: CLOPIDOGREL BISULFATE 75 MG TAB PO SCH (09:00)
--- NOTE | 2016-06-29 10:04 | CARDIOLOGY CONSULTATION ---
DATE OF CONSULTATION: 06/29/2016 REFERRING PHYSICIAN: Dr. Terry Amador and [facility] hospitalist. REASON FOR CONSULTATION: ? need for transesophageal echo. CHIEF COMPLAINT ON ADMISSION: Left arm tingling, leg weakness. HISTORY OF PRESENT ILLNESS: Ms. Jones is an 81-year-old female who noted left arm tingling which began on . This was associated with her head "not feeling quite right." On Tuesday, the patient went to hoahaoism and was not feeling well. She came home and was able to prepare a meal for family. In the evening, she assessed her blood pressure which was 150/80 and then repeated it which was 180/100. She began to feel weak in her legs. She was given antihypertensive medication in the ED, which induced a headache. Her symptoms subsequently resolved. An MRI of the brain was performed and found to be within normal limits for age. Denies any focal weakness, slurred speech, visual changes, facial asymmetry or gait instability. The patient reports dyspnea on exertion and chronic shortness of breath which has been present for greater than 1 year. Denies any exertional chest pain or any chest discomfort. Denies palpitations or history of dysrhythmia. No prior history of coronary disease, myocardial infarction, cerebrovascular accident, congestive heart failure, or rheumatic fever as a child. A resting 2D transthoracic echo was performed during hospitalization demonstrating an interatrial septal aneurysm and a small patent foramen ovale with a small right to left shunt. Upper and lower extremity venous duplex negative for thrombosis. The patient was prescribed Plavix in addition to her chronic aspirin therapy for diagnosis of possible right hemisphere TIA. Currently, the patient is resting comfortably. Offers no complaints and is anxious for discharge if possible. REVIEW OF SYSTEMS: The pertinent positives are noted above, comprehensive 10-system review is otherwise negative. PAST MEDICAL HISTORY: 1. Dyslipidemia. 2. GERD. 3. Nephrolithiasis. 4. Irritable bowel syndrome. 5. Syncope. PAST SURGICAL HISTORY: 1. Lumpectomy. 2. Hysterectomy. FAMILY HISTORY: Sister with a cerebrovascular accident in her late 40s. Mother and father with stomach cancer. SOCIAL HISTORY: Lifelong nonsmoker. She is , lives with her . ALLERGIES: LISTED TO SULFA. HOME MEDICATIONS: 1. Aspirin 81 mg daily. 2. Caltrate 1500 mg daily. 3. Vitamin D3 2000 units daily. 4. Fish oil 4000 units daily. 5. Prilosec 20 mg daily. 6. Zocor 20 mg daily. 7. Topical estrogen as needed. ECG ON ADMISSION: Normal sinus rhythm, normal ECG. Telemetry monitoring during hospitalization demonstrates sinus rhythm with occasional premature ventricular complexes. LABORATORY DATA: [id number] troponin undetectable. Triglycerides 272, total cholesterol 215, LDL 114, HDL 47. TSH 3.4. Sodium 143, potassium 4.1, chloride 27, CO2 is 27, BUN is 15, creatinine is 0.98. INR is 1.0. White blood cell count 4.18, hemoglobin is 12.6, platelet count 202. CAROTID DUPLEX: 30-40% narrowing of the left internal carotid artery, otherwise normal study. MRI OF THE BRAIN: Negative MRI for age. Chest x-ray on admission demonstrates no acute cardiopulmonary findings. PHYSICAL EXAMINATION: VITAL SIGNS: Temperature is 36.7 degrees centigrade, pulse 64 beats per minute and regular, respiratory rate 18 breaths per minute, blood pressure 124/70, SaO2 94% on room air. GENERAL: NAD, awake, alert and oriented x3. HEENT: Mucous membranes are moist. No scleral icterus. Conjunctivae pink. NECK: Supple. There is no JVD, no HJR, no carotid bruit. HEART: Regular with a normal S1 and S2. There is no murmur, rub or gallop. LUNGS: Clear without rales, rhonchi or wheeze. ABDOMEN: Soft and nontender. There is no rebound or guarding. Normal bowel sounds. EXTREMITIES: Warm and dry without clubbing, cyanosis or edema. NEUROLOGIC: Demonstrates no focal motor deficit. FINAL IMPRESSION: 1. An 81-year-old female presents with transient left upper extremity paresthesias, possible right hemisphere transient ischemic attack. MRI negative. 2. Patent foramen ovale with interatrial septal aneurysm and small right to left shunt by agitated saline contrast injection. 3. Transient hypertension -- resolved. 4. Dyslipidemia -- uncontrolled. 5. Mild left-sided internal carotid artery stenosis. 6. Chronic dyspnea on exertion/shortness of breath. PLAN AND RECOMMENDATIONS: I had a long discussion with the patient regarding her echocardiographic findings of patent foramen ovale. We discussed the incidence of PFO in the general population. Agree with addition of clopidogrel to aspirin therapy at this time as recommended by neurology. Currently, no indication for PFO closure. I have ordered a 14-day Zio monitor which will be placed at my office in [facility] to exclude the presence of occult atrial fibrillation. Her telemetry monitoring is unremarkable during current hospitalization. I do not believe a transesophageal echo would exchange underwriting consultant at this time. An exercise stress echo will also be performed as an outpatient due to exertional symptoms reported above. I will see her back for hospital followup in 2-4 weeks post-discharge. Thank you for allowing me to participate in the care of your patient.
[2016-06-29 11:08] VITALS: BP 132/69; PULSE 71; TEMP 37; O2SAT 94
--- NOTE | 2016-06-29 13:45 | Neurology Progress Notes ---
Neurology Progress Note Date of Service June 29, 2016. Subjective Amy Haddad is a 81 yr old female with PMH - GERD, Nephrolithiasis and Colon polyp , DL, presents with history head sensation last and then returned last night accompanied by left arm numbness tingling and weakness. She checked her blood pressure yesterday and was very elevated 150/80 but then repeated it and it was 180/100. She state she also started feeling weak in her legs. She state she didn't have a headache until they gave her blood pressure medication in the ED. She states the weakness and numbness and tingling in her arm has resolved but she still feels funny in her head and she still feel wobbly when she stands. Today she states she is ready to go home. Cardiology plans to follow as outpatient and Zio patch for further evaluation of possible arrhythmias. also discussed PFO and need to continue plavix and aspirin daily.She and her are in the room and agree with plan. Denies any history of fever, headache, blurry vision, chest pain, SOB, palpitations, change in vision, head trauma, fall, bowel/bladder incontinence, slurred speech, swallowing difficulties. denies any recurrent episodes discussed colonoscopy (routine) with patient scheduled at end of June. She will need to discuss this with Dr performing procedure. Would not stop plavix until cardiology work up is completed even though it is unclear what this event was we now have evidence she has a PFO. Objective Date Time Temp Pulse Resp B/P Pulse Ox O2 Delivery O2 Flow Rate FiO2 06/29/16 12:00 Room Air 06/29/16 11:08 37.0 71 18 132/69 94 Room Air 06/29/16 08:00 Room Air 06/29/16 07:54 36.7 64 18 124/70 94 Room Air 06/29/16 04:55 36.9 65 20 128/69 93 Room Air 06/29/16 04:00 Room Air 06/29/16 00:00 Room Air 06/28/16 23:45 36.7 70 20 121/69 95 Room Air 06/28/16 20:15 Room Air 06/28/16 20:10 36.9 76 18 138/74 92 Room Air 06/28/16 16:10 Room Air 06/28/16 15:37 36.9 66 16 124/77 95 Room Air Last 24 Hours Test 06/28/16 19:36 06/29/16 05:18 Urine Color YELLOW Urine Appearance CLEAR Urine pH 7.0 Urine Specific [place] 1.008 Urine Protein NEG Urine Glucose (UA) NEG Urine Ketones NEG Urine Occult Blood NEG Urine Nitrite NEG Urine Bilirubin NEG Urine Urobilinogen NEG Urine Leukocyte Esterase NEG Urine WBC (Auto) 0 /hpf Urine RBC (Auto) 0-4 /hpf Urine Hyaline Casts (Auto) 0 /lpf Urine Epithelial Cells (Auto) 0-5 /lpf Urine Bacteria (Auto) NEG White Blood Count 4.18 K/uL Red Blood Count 4.37 M/uL Hemoglobin 12.6 g/dL Hematocrit 38.1 % Mean Corpuscular Volume 87.2 fL Mean Corpuscular Hemoglobin 28.8 pg Mean Corpuscular Hemoglobin Concent 33.1 g/dl Platelet Count 202 K/uL Mean Platelet Volume 8.3 fL Neutrophils (%) (Auto) 38.1 % Lymphocytes (%) (Auto) 50.0 % Monocytes (%) (Auto) 9.6 % Eosinophils (%) (Auto) 1.9 % Basophils (%) (Auto) 0.2 % Neutrophils # (Auto) 1.59 K/uL Lymphocytes # (Auto) 2.09 K/uL Monocytes # (Auto) 0.40 K/uL Eosinophils # (Auto) 0.08 K/uL Basophils # (Auto) 0.01 K/uL RDW Standard Deviation 48.4 fL RDW Coefficient of Variation 15.0 % Immature Granulocyte % (Auto) 0.2 % Immature Granulocyte # (Auto) 0.01 K/uL Red Blood Cell Morphology Unremarkable Sodium Level 143 mmol/L Potassium Level 4.1 mmol/L Chloride Level 110 mmol/L Carbon Dioxide Level 27 mmol/L Anion Gap 6.0 mmol/L Blood Urea Nitrogen 15 mg/dl Creatinine 0.98 mg/dl Est Creatinine Clear Calc Drug Dose 46.0 ml/min Estimated GFR () 62.7 Estimated GFR (Non- 54.1 BUN/Creatinine Ratio 15.6 Random Glucose 99 mg/dl Calcium Level 8.7 mg/dl Imaging: UE doppler- There is no sonographic evidence of deep venous thrombosis identified in the right or left upper extremity. LE doppler- There is no sonographic evidence of deep venous thrombosis identified in the right or left lower extremity. Exam: gen: alert oriented x 3 lungs normal respiratory effort CV RRR moves all ext spontaneously and with command facial symmetry, tongue midline, no slurred or dysarthric speech Current Inpatient Medications Medications (Trade) Dose Ordered Sig/Jeanie Route Start Time Stop Time Status Last Admin Dose Admin Miscellaneous Information (Pharmacist Discharge Med Rec Consult) 1 ea UD PRN N/A 06/28/16 00:00 07/28/16 00:00 Heparin Sodium (Porcine) (Heparin Sq 5000 Unit/0.5ml) 5,000 unit Q8H SQ 06/28/16 06:00 07/28/16 05:59 06/29/16 05:28 5,000 UNIT Acetaminophen (Tylenol Tab) 650 mg Q4H PRN PO 06/28/16 00:00 07/28/16 00:00 06/28/16 21:43 650 MG Ondansetron HCl (Zofran Inj) 4 mg Q6H PRN IV 06/28/16 00:00 07/28/16 00:00 06/28/16 12:29 4 MG Aspirin (Ecotrin Tab) 81 mg DAILY PO 06/28/16 09:00 07/28/16 08:59 06/29/16 07:48 81 MG Fish Oil ([place]-3 (Purified Fish Oil) Cap) 4 gm DAILY PO 06/28/16 09:00 07/28/16 08:59 06/29/16 07:47 4 GM Simvastatin (Zocor Tab) 20 mg HS PO 06/28/16 21:00 07/28/16 20:59 06/28/16 08:22 20 MG Pantoprazole Sodium (Protonix Tab) 40 mg DAILY PO 06/28/16 09:00 07/28/16 08:59 06/29/16 07:49 40 MG Gadobutrol (Gadavist) 7.4 mmol UD PRN IV 06/28/16 02:00 07/02/16 01:59 Miscellaneous (Iv Fluids Completed) 1 ea PRN PRN N/A 06/28/16 04:15 06/28/17 04:14 Clopidogrel Bisulfate (plAVix TAB) 75 mg QAM PO 06/29/16 09:00 07/29/16 08:59 06/29/16 07:48 75 MG Impression 81 year old female with weakness, numbness and tingling in left arm, elevated blood pressure, heavy feeling in head Plan 1. optimize blood pressure and lipids LDL < 70, pre DM should be addressed by PCP Hgba1C 5.9 2. she was previously on aspirin 81 mg added plavix 75 mg daily 3. PT/OT/speech for discharge needs 4. TTE with PFO will need cardionet or ZIO if no irregular heart beat seen in hospital- if cards thinks appropriate- she has follow up scheduled with cardiology and ZIO patch for 2 weeks 5. MRI with no evidence of CVA 6. venous doppler UE/LE bilaterally no DVT noted 7. carotid doppler - no evidence of significant stenosis 8. ok to discharge from neurology perspective follow up in 2-3 weeks after discharge from hospital, Celia Richard PAC schedule I have seen and discussed above patient with Dr Terry Amador, neurology Reviewed and discussed with patient cardiology will follow up and we can see once for evaluation post zio patch and cardiac assessment outpatient waller need to exclude paroxysmal a fib and if negative then only asa and plavix for three months despite the pfo I am not certain the event that precipitated admission was related to it and could have been due to another artery to artery embolic event that left no clinical deficit or raegan on mri After three months then return to single antiplatelet rx Terry Amador MD
[2016-06-29 15:54] VITALS: BP 129/76; PULSE 65; TEMP 37; O2SAT 94
[2016-06-29 18:39] VITALS: BP 129/76; PULSE 65; TEMP 37; O2SAT 94
--- NOTE | 2016-06-29 18:47 | Discharge Summary ---
Discharge Summary Date of Service June 29, 2016. Discharge Summary Admission Date: Jun 27, 2016 at 23:54 Discharge Date: June 29, 2016 Discharge Disposition: Home Principal Diagnosis: Stroke-Like Symptoms/ TIA Procedures: MRI OF BRAIN CLINICAL HISTORY: Stroke like symptoms ischemia. Mental status change. FINDINGS: No evidence for an acute ischemic insult. Signal characteristics indicate a component of chronic small vessel change of aging. Ventricular system is midline. Sella and parasellar regions are unremarkable in postcontrast images are considered negative for an enhancing lesion. IMPRESSION: Negative MRI of the brain for age ECHO Jumprope intraatrial septum with a positive microcav study consistent with a PFO. The left ventricular cavity is small. There is moderate concentric left ventricular hypertrophy. Ejection Fraction = 60-65%. The right ventricular systolic function is normal. The left atrium is moderately dilated. The right atrium is moderately dilated. Grade I diastolic dysfunction, (abnormal relaxation pattern). CAROTID DOPPLER no hemodynamically significant stenosis 30/40% narrowing left internal carotid artery. Otherwise negative study ULTRASOUND OF EXTREMITIES -no evidence of DVT in both upper and lower extremities CT OF THE HEAD WITHOUT CONTRAST FINDINGS: No acute intracranial hemorrhage, midline shift or mass effect is present. Ventricular system is stable. Basilar cisterns are patent. There are no extra axial collections. Mays-white differentiation is preserved. There are no findings to suggest acute dural sinus thrombosis or acute territorial infarct. There is mild mucosal thickening of the right maxillary sinus. There are no significant calvarial abnormalities. Mastoid air cells are clear. IMPRESSION: No acute intracranial findings. Consultations: [facility] DR LOZANO [facility] DR HERNANDEZ Medication Reconciliation New Medications: [place]-3 Fatty Acids (Fish Oil) 1 Cap Cap 1 CAP PO DAILY for 30 Days OVER THE COUNTER Simvastatin (Zocor) 40 Mg Tab 1 TAB PO HS for 30 Days, #30 TAB 5 Refills Clopidogrel Bisulfate (Clopidogrel) 75 Mg Tab 75 MG PO QAM for 30 Days, #30 TAB 2 Refills Continued Medications: Aspirin (Aspirin) 81 Mg Tab 81 MG PO DAILY for 30 Days, #30 TAB 3 Refills Calcium Carbonate (Caltrate 600) 1,500 Mg Tab 1500 MG PO DAILY Cholecalciferol (Vitamin D3) 2,000 Unit Tab 2000 UNIT PO DAILY Estrogens, Conjugated (Premarin) 14 Appln/30 Gm Cr 1 APPLN PV HS PRN for DRYNESS Omeprazole (Prilosec) 20 Mg Capcr 20 MG PO DAILY Discontinued Medications: Fish Oil ([place]-3) 1 Ea Cap 4000 MG PO DAILY, CAP Simvastatin (Zocor) 20 Mg Tab 20 MG PO DAILY, TAB Referrals At Discharge Follow up Referrals: Neurologist Referral - Please Call For Appointment with Terry Lozano M.D. ( MEDICINE) Admission Information HPI (per Admitting provider): Patient is a 81 yr old female with PMH of HLP, GERD, Nephrolithiasis and Colon polyp presents with history of dizziness and left arm weakness since . Patient states she checked her blood pressure today and was very elevated and so came to ED for evaluation as she does not have history of hypertension. Also states having nausea, chills and feels weak in her legs. Denies any history of fever, headache, blurry vision, chest pain, SOB, palpitations, change in vision , head trauma, fall, bowel/bladder incontinence, problems speech with speech or facial deformity, cough , wheezing but states " I feel funny in my head". 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 neuroimaging ruled out acute CVA . ECHO shows PFO pt feels fine today , no complain of dizzy spell , no weakness or paresthesia - all neurological symptoms has resolved BP improved 130-120 today evaluated by Cardiology and Neurology today stable to be discharged home P/E: GEN ; no sign of distress HEENT ; sclera non icteric PERRLA/EOMI LUNGS ; CTA HT : regular S1/S2 ABDOMEN; soft, non tender EXTREMITY no rash or deformity NEUROLOGY no focal neurological deficit STROKE LIKE SYMPTOMS POSSIBLE TIA IN THE SETTING OF PFO Presented with Left arm weakness, dizziness -symptom has resolved CT head: showed no acute pathology Brain MRI: no acute process Carotid US: 30-40% stenosis Left ICA Echo: (+ )PFO Jumprope intraatrial septum with a positive microcav study consistent with a PFO. The left ventricular cavity is small. There is moderate concentric left ventricular hypertrophy. Ejection Fraction = 60-65%. The right ventricular systolic function is normal. The left atrium is moderately dilated. The right atrium is moderately dilated. Grade I diastolic dysfunction, (abnormal relaxation pattern). -- Neurology consulted-appreciate input pt will need cardiac monitoring for evaluation of arrhythmia /paroxysmal Afib due to presence of PFO added Plavix , was on Aspirin already Venous Doppler USG -Upper ext /lower ext bilat -no evidence of DVT risk modification for future CVA pt is asked to continue to take statin with Goal LDL < 70 Simvastatin dose increased to 40 mg daily form 20 mg ( LDL 114 ) repeat Fasting lipid panel in 3-6 months to adjust further dose of statin Hb A1 C< 6 will need out pt Neurology follow up Cardiology consulted -appreciate input , out pt Zio patch cardiac monitoring is scheduled to be placed on patient at [facility] if PAF is ruled out -pt will continue dual antiplatelets Aspirin and Plavix for 3 months , then transition to single antiplatelet HYPERTENSIVE URGENCY possible due to above, associated with stress and anxiety - required 2 doses of Hydralazine 10mg IV last night - BP has normalized TSH 3.4 no indication for antihypertensive agents on discharge DYSLIPIDEMIA Lipid panel : TG 271 : total cholesterol 215 , LDL 114 , HDL 47 , goal LDL < 70 increased Zocor to 40 mg daily repeat FLP in 3-6 months GERD: Continue PPI H/O Nephrolithiasis and Colon polyp Stable schedule to have colonoscopy end of June needs Plavix to be on hold 3-4 days prior to procedure DVT Px: Heparin SQ code status: full code Disposition: Discharge home today Total time spent on discharge = 35 MINS This includes examination of the patient, discharge planning, medication reconciliation, and communication with other providers. Discharge Instructions Discharge Instructions Date of Service June 29, 2016. Admission Reason for Admission: Stroke-Like Symptoms Discharge Discharge Diagnosis / Problem: TIA Discharge Goals Goal(s): Improve function, Diagnostic testing Activity Recommendations Activity Limitations: resume your previous activity . Instructions / Follow-Up Instructions / Follow-Up HOSPITAL FOLLOWUP WITH DR JOE IN 1 WEEK . OFFICE WILL CALL WITH APPOINTMENT CARDIOLOGY OFFICE WILL CALL TO SCHEDULE APPOINTMENT FOR AUDIO EXPERIENCE EXPERT ( ZIO PATCH ) FOLLOW UP WITH NEUROLOGY DR LOZANO IN 3 MONTHS , PLEASE CALL OFFICE TO SCHEDULE APPOINTMENT YOU NEED TO TAKE ASPIRIN AND PLAVIX FOR AT LEAST 3 MONTHS , TAKE WILL FULL STOMACH PLEASE NOTIFY YOUR FAMILY PHYSICIAN IF YOU NOTICE ANY EVIDENCE OF BLEEDING / DARK STOOL YOUR ZOCOR DOSE IS INCREASED TO 40 MG DAILY TO IMPROVE CHOLESTEROL LEVEL TO DECREASE STROKE RISK PLEASE HAVE FASTING LIPID PANEL CHECK IN 3 MONTHS BY YOUR FAMILY PHYSICIAN TO ADJUST FURTHER DOSE ADJUSTMENT YOU BAD CHOLESTEROL LDL IN 114 IN ORDER TO REDUCE STROKE IT NEEDS TO BE LOWERED < 70 Risk Factors for Stroke: You can reduce your chances of stroke by working with your medical provider to adopt a healthy lifestyle. Some specific ways to lower your chance of stroke are: * If you are a smoker, now is the time to stop smoking cigarettes * If you are diabetic, improve the control of your blood sugars * Avoid excessive amounts of alcohol * Control high blood pressure * Lose weight if you are overweight * Be sure to lead an active lifestyle * Eat a healthy diet low in salt, cholesterol and fat You should know about other risk factors for stroke that you are unable to control. These include: * Age 55 years or older * Male gender * Certain racial groups: , or / * Family History of Stroke, Mini stroke or Heart Attack * Sickle Cell Disease Follow Up: It is important for you to keep your follow up appointments with your medical provider. Current Hospital Diet Patient's current hospital diet: AHA Diet (Heart Healthy) Discharge Diet Recommended Diet: AHA Diet (Heart Healthy) Pending Studies Studies pending at discharge: no Laboratory Results Hemoglobin A1c Test 06/28/16 05:56 Range/Units Estimated Average Glucose 123 mg/dl Hemoglobin A1c 5.9 H 4.5-5.6 % Lipid Panel Test 06/28/16 05:56 Range/Units Triglycerides Level 272 H 0-150 mg/dl Cholesterol Level 215 H 0-200 mg/dl HDL Cholesterol 47 mg/dl Cholesterol/HDL Ratio 4.6 LDL Cholesterol, Calculated 114 mg/dl Medical Emergencies . Who to Call and When: Medical Emergencies: Call 911 immediately if you experience any of the following warning signs and symptoms of Stroke: * Sudden numbness or weakness of the face, arm or leg, especially on one side of the body * Sudden confusion, trouble speaking or understanding * Sudden trouble seeing in one or both eyes * Sudden trouble walking, dizziness, loss of balance or coordination * Sudden severe headache with no cause Do not delay calling 911 if you experience any warning signs or symptoms of a stroke. Delay in seeking medical attention may affect what treatments can be given to you. . Non-Emergent Contact Non-Emergency issues call your: Primary Care Provider . . "Provider Documentation" section prepared by Virgie Mcguire. . Stroke Core Measures Reason no t-PA for Stroke: Treatment not indicated Reason no antithrom by day 2: Treatment provided - N/A Reason no antithrom at D/C: Treatment provided - N/A Reason no statin at D/C: Treatment provided - N/A Reason no anticoag w/a fib: Treatment not indicated VTE Core Measure Inpt VTE Proph given/why not?: Enoxaparin (Lovenox)SQ [place] Drug Monitoring Program Search Results: no issues identified Additional Copies To Iona Joe M.D. Mateer, John, M.D. (MEDICINE)
[2016-06-29] MEDS ORDERED: SIMV40TA4 PO (18:51)
[2016-06-29] MEDS ORDERED: PLV75 PO (18:51)
[2016-06-29] MEDS ORDERED: OMEGCAP2 PO (18:51)
--- NOTE | 2016-06-29 18:59 | Discharge Instructions ---
Discharge Instructions Date of Service June 29, 2016. Admission Reason for Admission: Stroke-Like Symptoms Discharge Discharge Diagnosis / Problem: TIA Discharge Goals Goal(s): Improve function, Diagnostic testing Activity Recommendations Activity Limitations: resume your previous activity . Instructions / Follow-Up Instructions / Follow-Up HOSPITAL FOLLOWUP WITH DR OSPINA IN 1 WEEK . OFFICE WILL CALL WITH APPOINTMENT CARDIOLOGY OFFICE WILL CALL TO SCHEDULE APPOINTMENT FOR VICE PRESIDENT NETWORK ( [facility] ) FOLLOW UP WITH NEUROLOGY DR LOZANO IN 3 MONTHS , PLEASE CALL OFFICE TO SCHEDULE APPOINTMENT YOU NEED TO TAKE ASPIRIN AND PLAVIX FOR AT LEAST 3 MONTHS , TAKE WILL FULL STOMACH PLEASE NOTIFY YOUR FAMILY PHYSICIAN IF YOU NOTICE ANY EVIDENCE OF BLEEDING / DARK STOOL YOUR ZOCOR DOSE IS INCREASED TO 40 MG DAILY TO IMPROVE CHOLESTEROL LEVEL TO DECREASE STROKE RISK PLEASE HAVE FASTING LIPID PANEL CHECK IN 3 MONTHS BY YOUR FAMILY PHYSICIAN TO ADJUST FURTHER DOSE ADJUSTMENT YOU BAD CHOLESTEROL LDL IN 114 IN ORDER TO REDUCE STROKE IT NEEDS TO BE LOWERED < 70 Risk Factors for Stroke: You can reduce your chances of stroke by working with your medical provider to adopt a healthy lifestyle. Some specific ways to lower your chance of stroke are: * If you are a smoker, now is the time to stop smoking cigarettes * If you are diabetic, improve the control of your blood sugars * Avoid excessive amounts of alcohol * Control high blood pressure * Lose weight if you are overweight * Be sure to lead an active lifestyle * Eat a healthy diet low in salt, cholesterol and fat You should know about other risk factors for stroke that you are unable to control. These include: * Age 55 years or older * Male gender * Certain racial groups: , or / * Family History of Stroke, Mini stroke or Heart Attack * Sickle Cell Disease Follow Up: It is important for you to keep your follow up appointments with your medical provider. Current Hospital Diet Patient's current hospital diet: AHA Diet (Heart Healthy) Discharge Diet Recommended Diet: AHA Diet (Heart Healthy) Pending Studies Studies pending at discharge: no Laboratory Results Hemoglobin A1c Test 06/28/16 05:56 Range/Units Estimated Average Glucose 123 mg/dl Hemoglobin A1c 5.9 H 4.5-5.6 % Lipid Panel Test 06/28/16 05:56 Range/Units Triglycerides Level 272 H 0-150 mg/dl Cholesterol Level 215 H 0-200 mg/dl HDL Cholesterol 47 mg/dl Cholesterol/HDL Ratio 4.6 LDL Cholesterol, Calculated 114 mg/dl Medical Emergencies . Who to Call and When: Medical Emergencies: Call 911 immediately if you experience any of the following warning signs and symptoms of Stroke: * Sudden numbness or weakness of the face, arm or leg, especially on one side of the body * Sudden confusion, trouble speaking or understanding * Sudden trouble seeing in one or both eyes * Sudden trouble walking, dizziness, loss of balance or coordination * Sudden severe headache with no cause Do not delay calling 911 if you experience any warning signs or symptoms of a stroke. Delay in seeking medical attention may affect what treatments can be given to you. . Non-Emergent Contact Non-Emergency issues call your: Primary Care Provider . . "Provider Documentation" section prepared by Virgie Mcguire. . Stroke Core Measures Reason no t-PA for Stroke: Treatment not indicated Reason no antithrom by day 2: Treatment provided - N/A Reason no antithrom at D/C: Treatment provided - N/A Reason no statin at D/C: Treatment provided - N/A Reason no anticoag w/a fib: Treatment not indicated VTE Core Measure Inpt VTE Proph given/why not?: Enoxaparin (Lovenox)SQ [place] Drug Monitoring Program Search Results: no issues identified
--- NOTE | 2016-07-13 13:51 | EDITING REQUIRED CODING QUERY ---
CQSUPPORTING DIAGNOSIS NEEDED A supporting diagnosis is required for the test/procedure performed on this patient in order for us to be reimbursed by the patient's insurance. Please provide a supporting diagnosis for the following test/procedure listed below next to the test name along with your signature. *If there is no additional diagnosis for this patient that would support the following test/procedure please document that below next to the test/procedure. Test(s)/Procedure(s) that require a supporting diagnosis: Pre diabetes DOS 06/28/16 GLYCATED HEMOGLOBIN INPATIENT ACCOUNT Provider Signature: wisam ramirez Date: _07/20/16 Thank you Shruti Hand Health Information Management Once completed, please kindly fax back to [phone] For questions please call [phone]
--- NOTE | 2016-07-13 13:52 | EDITING REQUIRED CODING QUERY ---
CQSUPPORTING DIAGNOSIS NEEDED A supporting diagnosis is required for the test/procedure performed on this patient in order for us to be reimbursed by the patient's insurance. Please provide a supporting diagnosis for the following test/procedure listed below next to the test name along with your signature. *If there is no additional diagnosis for this patient that would support the following test/procedure please document that below next to the test/procedure. Test(s)/Procedure(s) that require a supporting diagnosis: DOS 06/28/16 NON-INVASIVE PERIPHERAL VENOUS STUDY INPATIENT ACCOUNT Provider Response: She had a PFO and if she would have had a DVT she could have showered emboli to her brain if it would have traveled to her heart. The anticoagulation would have needed changed to prevent an embolic shower. Thank you for response please sign query to complete process Provider Signature: Date: Thank you Shruti Hand Health Information Management Once completed, please kindly fax back to [phone] For questions please call [phone]
== END 2016-06-29 19:20 | disposition home or self-care (01) | DRG 69 ==
LOC: ENRESERVDT → ENRESERVTM → C.EDB 21:06 → C.MED 23:54 → EEVIPCON 23:54 → EDBEDREQ 06-28 01:09
PROVIDERS: ADMIT Internal Medicine; ATTEND Hospitalist
DX: G45.9 Transient cerebral ischemic attack, unspecified (principal); Q21.1 Atrial septal defect; I16.0 Hypertensive urgency; E78.5 Hyperlipidemia, unspecified; K21.9 Gastro-esophageal reflux disease without esophagitis; Z82.49 Family history of ischemic heart disease and other diseases of the circulatory system; Z80.0 Family history of malignant neoplasm of digestive organs; Z79.82 Long term (current) use of aspirin; M79.602 Pain in left arm

== ENCOUNTER 2022-08-11 21:34 | Inpatient (IN) ==
[2022-08-11 22:22] LABS: Hemoglobin 12.3 g/dl (12.0-16.0); Mean Corpuscular Hemoglobin 29.9 pg (25.0-34.0); Mean Corpuscular Hgb Conc 33.2 g/dL (32.0-36.0); Platelet Count 287 K/uL (130-400); RDW Coefficient of Variation 15.1 % (11.5-14.5); RDW Standard Deviation 49.7 fL (36.4-46.3); Red Blood Count 4.11 M/uL (4.20-5.40); White Blood Count 6.39 K/ul (4.8-10.8)
[2022-08-11 22:31] LABS: Albumin Globulin Ratio 1.4 (0.9-2); Albumin Level 4.2 gm/dl (3.4-5.0); BUN Creatinine Ratio 15.6 (10-20); Bilirubin,Total 0.3 mg/dl (0.2-1.0); Calcium 9.6 mg/dl (8.6-10.3); Creatinine Clr Calc Pharmacy 27.3 ml/min; Est GFR (African American) 38.7 ml/min; Est GFR (Non-African American) 33.4 ml/min; Globulin 3.1 gm/dl (2.5-4.0); Magnesium 1.9 mg/dl (1.7-2.4); Potassium 4.5 mmol/L (3.5-5.1); Total Protein 7.3 gm/dl (6.0-8.3)
[2022-08-11 22:49] LABS: Partial Thromboplastin Ratio 0.9; Partial Thromboplastin Time 26.1 Seconds (21.0-31.0); Prothrombin Time 10.9 Seconds (9.0-12.0)
[2022-08-11] MEDS ORDERED: SODIUM CHLORIDE 0.9% 500 ML IV ONE (23:12)
--- NOTE | 2022-08-11 23:23 | Emergency Department Note ---
History of Present Illness General Chief complaint: TIA Symptoms Stated complaint: TIA SYMPTOMS,HANDS NUMB,NAUSE,WEAK,DROOPING FACE Time Seen by Provider: 08/11/22 22:55 History of Present Illness 87-year-old female with past medical history significant for TIA on Plavix, HTN, HLD who presents to the emergency department accompanied by daughter and for evaluation of strokelike symptoms. Patient states she was sitting at dinner around 730 this evening when she noticed her left fingers to feel numb. She denies radiation up her arm. She states the person sitting across from her told her that the left side of her face was drooping. She attempted to take a drink and water spilled out of her mouth. She denied any weakness of the extremity, lower extremity weakness/numbness/tingling, slurred speech, visual changes, headache, dizziness/lightheadedness, confusion or memory loss. She states sympt oms resolved completely after approximately 5 minutes. She was able to get up from the table and walk outside to her car with assistance. She denies associated chest pain, shortness of breath, abdominal pain, fever/chills, nausea/vomiting. She states she had TIA like symptoms presenting with left arm numbness approximately 10 years ago. She is on Plavix. She recently was treated with Cipro for a kidney infection otherwise no changes to any medications. She states she feels back to her baseline currently. Home Medications Medication Instructions Recorded Confirmed Type amlodipine 5 mg tablet 5 mg PO PM 03/12/19 08/11/22 History clopidogrel 75 mg tablet (Plavix) 75 mg PO QAM 03/12/19 08/11/22 History hydrochlorothiazide 25 mg tablet 25 mg PO QAM 03/12/19 08/11/22 History losartan 25 mg tablet 25 mg PO QAM 03/12/19 08/12/22 History metoprolol succinate 25 mg 25 mg PO QAM 03/12/19 08/11/22 History tablet,extended release 24 hr (Toprol XL) omeprazole 20 mg tablet,delayed 20 mg PO QAM 03/12/19 08/11/22 History release atorvastatin 20 mg tablet 20 mg PO HS 08/11/22 08/11/22 History calcium carbonate 500 mg calcium 500 mg PO DAILY 08/12/22 08/12/22 History (1,250 mg) tablet cholecalciferol (vitamin D3) 125 125 mcg PO DAILY 08/12/22 08/12/22 History mcg (5,000 unit) tablet (Vitamin D3) Allergies Allergy/AdvReac Type Severity Reaction Status Date / Time antipyrine Allergy Intermediate Rash Verified 08/12/22 00:13 Sulfa (Sulfonamide Allergy Intermediate Rash Verified 08/12/22 00:13 Antibiotics) niacin AdvReac Mild Flushing Verified 08/12/22 00:13 Past Med/Surg History Medical History (Updated 08/12/22 @ 01:19 by Celena Lopez PA-C) GERD (gastroesophageal reflux disease) Hearing deficit HTN (hypertension) Kidney stones Osteoarthritis PFO (patent foramen ovale) Stroke-like symptoms NO ACTUAL STROKE > WENT TO [facility] > UNSURE OF EXACT DATE UTI (urinary tract infection) HX Surgical History History of colonoscopy History of hysterectomy History of left cataract surgery History of tooth extraction Family History Brother Colon cancer Sister Colon cancer Social History Smoking Status: Never smoker Second Hand Exposure: No; Do You Dip or Chew Tobacco: No; Hx Alcohol Use: No Hx Substance Use: No Preferred Language: Mongolian Communication Ability: Effective Agricultural Scientist Required: No Beliefs That Will Affect Care: None Current Living Situation: Spouse Feels Safe at Home: Yes Assistive Devices: Glasses and Hearing Aid - Bilateral Physical Exam Vital Signs Vital Signs - 24 hr 08/11/22 21:38 08/11/22 22:08 08/11/22 22:09 Temperature 36.7 C Temperature Source Temporal Artery Scan Pulse Rate 88 79 Pulse Rate [Apical] 79 Respiratory Rate 18 18 18 Respiratory Effort / Characteristics Non-Labored Spontaneous Non-Labored Spontaneous Respiratory Depth Normal Normal Blood Pressure 118/81 Blood Pressure [Left Arm] 168/76 H Blood Pressure Mean 93 Blood Pressure Mean [Left Arm] 106 Blood Pressure Position [Left Arm] Sitting Pulse Oximetry 96 97 96 Oxygen Delivery Method Room Air Room Air Room Air Sepsis Recent Fever Within 48 Hours No Sepsis New/Unexplained Change in Mental Status No Sepsis Action Taken by Nursing No Action Required 08/11/22 22:12 08/11/22 23:59 Temperature Temperature Source Pulse Rate 79 Pulse Rate [Apical] 80 Respiratory Rate 16 Respiratory Effort / Characteristics Respiratory Depth Blood Pressure Blood Pressure [Left Arm] 142/73 H Blood Pressure Mean Blood Pressure Mean [Left Arm] 96 Blood Pressure Position [Left Arm] Pulse Oximetry 96 Oxygen Delivery Method Room Air Sepsis Recent Fever Within 48 Hours Sepsis New/Unexplained Change in Mental Status Sepsis Action Taken by Nursing Constitutional: alert and oriented x3. no acute distress. Nontoxic HEENT: normocephalic, atraumatic. normal conjunctiva.PERRLA. EOM's grossly intact. TMs pearly bhagat without effusion. Pharynx pink without exudate. Tonsils nonenlarged. Mucus membranes moist Neck: neck is supple, nontender. Right carotid bruit. Midline C-spine nonte nder. Respiratory: lungs are clear to auscultation without wheezes, rhonchi, or rales bilaterally. equal chest rise. normal respiratory effort, no accessory muscle use. Cardiovascular: normal heart sounds without murmur. regular rate and rhythm. GI: abdomen is soft, nontender. No palpable masses. No rebound tenderness or g uarding. MSK: Moves all 4 extremities spontaneously. Strength +4 and equal throughout all 4 extremities Peripheral vascular: Upper and lower extremities warm and well perfused with palpable pulses. Neuro: without focal neuro deficits. Answers questions appropriately, follows commands. CNII-XII intact. Speech clear, tongue midline, without facial droop. Strength +4 and equal throughout all for extremities. Normal cerebellar function tests Psych:appropriate mood and affect. Course Administered Medications Discontinued Medications Sodium Chloride (Nss) 500 mls @ 999 mls/hr IV .Q31M ONE Stop: 08/11/22 23:42 Last Infusion: 08/12/22 01:17 Dose: 0 mls/hr Documented By: Admin: 08/12/22 00:00 Dose: 999 mls/hr Documented By: WILLIAN Ioversol (Optiray 320 500ml) 125 ml IV ONCE ONE Stop: 08/11/22 23:34 Last Admin: 08/11/22 23:33 Dose: 115 ml Documented By: EITAN Medical Decision Making Differential Diagnosis CVA, TIA, migraine, headache, dehydration, electrolyte abnormalities, infection as well as other pathologies Laboratory Data Attestation: I reviewed the patient's lab results. 08/11/22 21:56 08/11/22 21:56 Lab Results 08/11/22 08/11/22 08/11/22 Range/Units 21:40 21:56 21:56 WBC 6.39 (4.8-10.8) K/ul RBC 4.11 L (4.20-5.40) M/uL Hgb 12.3 (12.0-16.0) g/dl Hct 37.0 (37.0-47.0) % MCV 90.0 (80.0-100.0) fL MCH 29.9 (25.0-34.0) pg MCHC 33.2 (32.0-36.0) g/dL RDW Std Deviation 49.7 H (36.4-46.3) fL RDW Coeff of Eros 15.1 H (11.5-14.5) % Plt Count 287 (130-400) K/uL MPV 9.0 L (9.4-12.4) fL PT 10.9 (9.0-12.0) Seconds INR 1.0 (0.9-1.1) APTT 26.1 (21.0-31.0) Seconds PTT Ratio 0.9 Sodium (136-145) mmol/L Potassium (3.5-5.1) mmol/L Chloride (98-107) mmol/L Carbon Dioxide (21-32) mmol/L Anion Gap (3-11) BUN (6-23) mg/dl Creatinine (0.6-1.2) mg/dl Est Cr Clr Drug Dosing ml/min Est GFR ( Amer) ml/min Est GFR (Non-Af Amer) ml/min BUN/Creatinine Ratio (10-20) Glucose (70-99(Fasting)) mg/dl Calcium (8.6-10.3) mg/dl Magnesium (1.7-2.4) mg/dl Total Bilirubin (0.2-1.0) mg/dl AST (13-39) U/L ALT (7-52) U/L Alkaline Phosphatase (34-104) U/L Total Protein (6.0-8.3) gm/dl Albumin (3.4-5.0) gm/dl Globulin (2.5-4.0) gm/dl Albumin/Globulin Ratio (0.9-2) Urine Color Urine Appearance (Clear) Urine pH (4.5-7.5) Ur Specific [place] (1.000-1.030) Urine Protein (Negative) Urine Glucose (UA) (Negative) Urine Ketones (Negative) Urine Blood (Negative) Urine Nitrite (Negative) Urine Bilirubin (Negative) Urine Urobilinogen (Negative) Ur Leukocyte Esterase (Negative) Urine WBC (Auto) (0-5) /hpf Urine RBC (Auto) (0-4) /hpf U Hyaline Cast (Auto) (0-5) /lpf U Epithel Cells (Auto) (0-5) /lpf Urine Bacteria (Auto) (Negative) SARS-CoV-2, RNA, NAAT NEGATIVE (NEGATIVE) 08/11/22 08/11/22 Range/Units 21:56 23:45 WBC (4.8-10.8) K/ul RBC (4.20-5.40) M/uL Hgb (12.0-16.0) g/dl Hct (37.0-47.0) % MCV (80.0-100.0) fL MCH (25.0-34.0) pg MCHC (32.0-36.0) g/dL RDW Std Deviation (36.4-46.3) fL RDW Coeff of Eros (11.5-14.5) % Plt Count (130-400) K/uL MPV (9.4-12.4) fL PT (9.0-12.0) Seconds INR (0.9-1.1) APTT (21.0-31.0) Seconds PTT Ratio Sodium 137 (136-145) mmol/L Potassium 4.5 (3.5-5.1) mmol/L Chloride 105 (98-107) mmol/L Carbon Dioxide 26 (21-32) mmol/L Anion Gap 6 (3-11) BUN 22 (6-23) mg/dl Creatinine 1.41 H (0.6-1.2) mg/dl Est Cr Clr Drug Dosing 27.3 ml/min Est GFR ( Amer) 38.7 ml/min Est GFR (Non-Af Amer) 33.4 ml/min BUN/Creatinine Ratio 15.6 (10-20) Glucose 127 H (70-99(Fasting)) mg/dl Calcium 9.6 (8.6-10.3) mg/dl Magnesium 1.9 (1.7-2.4) mg/dl Total Bilirubin 0.3 (0.2-1.0) mg/dl AST 69 H (13-39) U/L ALT 19 (7-52) U/L Alkaline Phosphatase 69 (34-104) U/L Total Protein 7.3 (6.0-8.3) gm/dl Albumin 4.2 (3.4-5.0) gm/dl Globulin 3.1 (2.5-4.0) gm/dl Albumin/Globulin Ratio 1.4 (0.9-2) Urine Color Yellow Urine Appearance Clear (Clear) Urine pH 6.0 (4.5-7.5) Ur Specific [place] 1.009 (1.000-1.030) Urine Protein Negative (Negative) Urine Glucose (UA) Negative (Negative) Urine Ketones Negative (Negative) Urine Blood 1+ H (Negative) Urine Nitrite Negative (Negative) Urine Bilirubin Negative (Negative) Urine Urobilinogen Negative (Negative) Ur Leukocyte Esterase 1+ H (Negative) Urine WBC (Auto) 5-10 H (0-5) /hpf Urine RBC (Auto) 0-4 (0-4) /hpf U Hyaline Cast (Auto) 0 (0-5) /lpf U Epithel Cells (Auto) 10-20 H (0-5) /lpf Urine Bacteria (Auto) Negative (Negative) SARS-CoV-2, RNA, NAAT (NEGATIVE) Imaging Data Radiologist's Impression: Head CT 08/11/22 23:12 Exam(s): CT HEAD Without Contrast EXAM: CT Head Without Intravenous Contrast CLINICAL HISTORY: Reason for exam: left arm and face numbness. TECHNIQUE: Axial computed tomography images of the head/brain without intravenous contrast. CTDI is 37.61 mGy and DLP is 1091.1 mGy-cm. Automated exposure control was utilized for the study. A dose lowering technique was utilized adhering to the principles of ALARA. COMPARISON: None. FINDINGS: Brain: No mass effect or acute infarct. No acute hemorrhage. Mild/moderate atrophy and chronic, nonspecific white matter disease. Ventricles: No hydrocephalus or midline shift. Bones/joints: No skull fracture. Soft tissues: No scalp hematoma. Sinuses: Clear. Mastoid air cells: No mastoid effusion. IMPRESSION: 1. No acute infarct, bleed, or acute intracranial abnormality. Electronically signed by: Lynda Momin M.D. 08/12/22 00:17 AM Head CTA 08/11/22 23:12 Exam(s): CTA HEAD With Contrast IV Amt: 115 ML OPTIRAY 320 EXAM: CT Angiography Head With Intravenous Contrast CLINICAL HISTORY: Reason for exam: left arm and face numbness. TECHNIQUE: Axial computed tomographic angiography images of the head with intravenous contrast. CTDI is 37.61 mGy and DLP is 1019.1 mGy-cm. Automated exposure control was utilized for the study. A dose lowering technique was utilized adhering to the principles of ALARA. MIP reconstructed images were created and reviewed. CONTRAST: Patient received 115 ML OPTIRAY 320 of IV contrast COMPARISON: None. FINDINGS: Right internal carotid artery: Patent. Right anterior cerebral artery: Patent. Right middle cerebral artery: Patent. Right posterior cerebral artery: Patent. Right vertebral artery: Patent. Left internal carotid artery: Patent. Left anterior cerebral artery: Patent. Left middle cerebral artery: Patent. Left posterior cerebral artery: Patent. Left vertebral artery: Patent. Basilar artery: Patent. Other: Mild atherosclerosis bilateral cavernous ICA without significant stenosis. IMPRESSION: 1. No aneurysm or large vessel occlusion. Electronically signed by: Lynda Momin M.D. 08/12/22 00:26 AM Neck CTA 08/11/22 23:12 Exam(s): CTA NECK With Contrast IV Amt: 115 ML OPTIRAY 320 EXAM: CT Angiography Neck With Intravenous Contrast CLINICAL HISTORY: Reason for exam: left arm and face numbness. TECHNIQUE: Routine carotid CT angiography protocol was performed with intravenous contrast. NASCET criteria using the distal ICAs for comparison were used for evaluation of stenoses. CTDI is 37.61 mGy and DLP is 1091.1 mGy-cm. Automated exposure control was utilized for the study. A dose lowering technique was utilized adhering to the principles of ALARA. MIP reconstructed images were created and reviewed. CONTRAST: Patient received 115 ML OPTIRAY 320 of IV contrast COMPARISON: None. FINDINGS: VASCULATURE: Right common carotid artery: Patent. Right internal carotid artery: Patent. Right vertebral artery: Focal vessel narrowing at C4-5, approximately 50%. Left common carotid artery: Patent. Left internal carotid artery: Patent. Left vertebral artery: Patent. Other: No significant atherosclerosis of the carotid bifurcation. IMPRESSION: 1. Mild, focal right vertebral artery stenosis, approximately 50%. 2. No dissection, occlusion, or significant stenosis. CAROTID STENOSIS REFERENCE USING NASCET CRITERIA: % ICA stenosis = (1 - narrowest ICA diameter/diameter of distal cervical ICA) x 100. Mild - <50% stenosis. Moderate - 50-69% stenosis. Severe - 70-94% stenosis. Near occlusion - 95-99% stenosis. Occluded - 100% stenosis. Electronically signed by: Lynda Momin M.D. 08/12/22 00:24 AM MDM Narrative 87-year-old female who presents to the emergency department accompanied by daughter and for evaluation of left arm numbness and facial droop. Review of pertinent visits and past medical history performed. Vital signs in ED within normal limits, afebrile. Patient reports approximate 5-minute episode of left finger numbness with associated facial droop starting at 730 this evening. Symptoms have since completely resolved. IV access was established and labs were obtained. EKG demonstrates normal sinus rhythm at a rate of 81 bpm without acute ischemic changes. CBC without leukocytosis or acute anemia. CMP without significant electrolyte abnormalities. Renal function demonstrates RON with creatinine elevated at 1.4 (baseline 0.8-0.9). AST elevated 69. Remainder of LFTs unremarkable. Urinalysis consistent with contamination. Given presentation, head CT as well as head/neck CTA were performed and unremarkable. No evidence of infarct, hemorrhage, mass. Approximate 50% stenosis of right vertebral artery. No significant carotid artery stenosis. On exam, patient is nontoxic-appearing in no acute distress. She is neurologically intact without focal deficits. No facial droop, tongue midline, speech clear. Lungs CTA. Abdomen is benign. Strength +4 and equal throughout all 4 extremities. Remainder physical exam is unremarkable. She declined need for pain medications while here in the ED. She was treated with 500 mL IV fluids. Patient was reevaluated on multiple occasions throughout ED stay and remained stable without recurrent symptoms. She was updated on all exam findings and test results. At this time, I recommend admission to the hospital for full stroke work-up including likely brain MRI. Patient verbalized understanding and was comfortable with this plan. Case was discussed with hospitalist, Dr. Balderas, who reviewed work-up and graciously excepted patient to his service for further management. Patient was admitted in stable condition. Case was discussed with the ED attending, , who agrees with work-up and treatment plan. Impression & Plan Left arm numbness, Facial droop Discharge Plan Visit Data Chief Complaint: TIA Symptoms Stated Complaint: TIA SYMPTOMS,HANDS NUMB,NAUSE,WEAK,DROOPING FACE ED Provider: Jorge L Rhodes ED Midlevel Provider: Celena Lopez Discharge Problem: Left arm numbness, Facial droop Patient Disposition: Admitted As Inpatient Forms Stand Alone Forms: [facility] Prescriptions Prescriptions: No Action clopidogrel [Plavix] 75 mg Tablet 75 mg PO QAM amlodipine 5 mg Tablet 5 mg PO PM hydrochlorothiazide 25 mg Tablet 25 mg PO QAM metoprolol succinate [Toprol XL] 25 mg Tablet Extended Release 24 Hr 25 mg PO QAM omeprazole 20 mg Tablet,Delayed Release (Dr/Ec) 20 mg PO QAM losartan 25 mg Tablet 25 mg PO QAM atorvastatin 20 mg Tablet 20 mg PO HS calcium carbonate [Calcium 500] 500 mg calcium (1,250 mg) Tablet 500 mg PO DAILY cholecalciferol (vitamin D3) [Vitamin D3] 125 mcg (5,000 unit) Tablet 125 mcg PO DAILY Referrals Referrals: Marcia Carreno DO [Primary Care Provider] -
[2022-08-11] MEDS ORDERED: OPTIRAY 320 500ml IV ONE (23:33)
[2022-08-11 23:59] LABS: Appearance Urine Clear (Clear); Bacteria Urine Automated Negative (Negative); Bilirubin Urine Negative (Negative); Blood Urine 1+ (Negative); Cast Urine Automated 0 /lpf (0-5); Color Urine Yellow; Glucose Urine UA Negative (Negative); Ketones Urine Negative (Negative); Leukocyte Esterase Urine 1+ (Negative); Nitrite Urine Negative (Negative); Protein Urine Negative (Negative); RBC Urine Automated 0-4 /hpf (0-4); Specific Gravity Urine 1.009 (1.000-1.030); Urobilinogen Urine Negative (Negative)
--- NOTE | 2022-08-12 00:18 | CT Scan Report ---
Exam(s): CT HEAD Without Contrast EXAM: CT Head Without Intravenous Contrast CLINICAL HISTORY: Reason for exam: left arm and face numbness. TECHNIQUE: Axial computed tomography images of the head/brain without intravenous contrast. CTDI is 37.61 mGy and DLP is 1091.1 mGy-cm. Automated exposure control was utilized for the study. A dose lowering technique was utilized adhering to the principles of ALARA. COMPARISON: None. FINDINGS: Brain: No mass effect or acute infarct. No acute hemorrhage. Mild/moderate atrophy and chronic, nonspecific white matter disease. Ventricles: No hydrocephalus or midline shift. Bones/joints: No skull fracture. Soft tissues: No scalp hematoma. Sinuses: Clear. Mastoid air cells: No mastoid effusion. IMPRESSION: 1. No acute infarct, bleed, or acute intracranial abnormality. Electronically signed by: Lynda Momin M.D. 08/12/22 00:17 AM
--- NOTE | 2022-08-12 00:25 | CT Scan Report ---
Exam(s): CTA NECK With Contrast IV Amt: 115 ML OPTIRAY 320 EXAM: CT Angiography Neck With Intravenous Contrast CLINICAL HISTORY: Reason for exam: left arm and face numbness. TECHNIQUE: Routine carotid CT angiography protocol was performed with intravenous contrast. NASCET criteria using the distal ICAs for comparison were used for evaluation of stenoses. CTDI is 37.61 mGy and DLP is 1091.1 mGy-cm. Automated exposure control was utilized for the study. A dose lowering technique was utilized adhering to the principles of ALARA. MIP reconstructed images were created and reviewed. CONTRAST: Patient received 115 ML OPTIRAY 320 of IV contrast COMPARISON: None. FINDINGS: VASCULATURE: Right common carotid artery: Patent. Right internal carotid artery: Patent. Right vertebral artery: Focal vessel narrowing at C4-5, approximately 50%. Left common carotid artery: Patent. Left internal carotid artery: Patent. Left vertebral artery: Patent. Other: No significant atherosclerosis of the carotid bifurcation. IMPRESSION: 1. Mild, focal right vertebral artery stenosis, approximately 50%. 2. No dissection, occlusion, or significant stenosis. CAROTID STENOSIS REFERENCE USING NASCET CRITERIA: % ICA stenosis = (1 - narrowest ICA diameter/diameter of distal cervical ICA) x 100. Mild - <50% stenosis. Moderate - 50-69% stenosis. Severe - 70-94% stenosis. Near occlusion - 95-99% stenosis. Occluded - 100% stenosis. Electronically signed by: Lynda Momin M.D. 08/12/22 00:24 AM
--- NOTE | 2022-08-12 00:27 | CT Scan Report ---
Exam(s): CTA HEAD With Contrast IV Amt: 115 ML OPTIRAY 320 EXAM: CT Angiography Head With Intravenous Contrast CLINICAL HISTORY: Reason for exam: left arm and face numbness. TECHNIQUE: Axial computed tomographic angiography images of the head with intravenous contrast. CTDI is 37.61 mGy and DLP is 1019.1 mGy-cm. Automated exposure control was utilized for the study. A dose lowering technique was utilized adhering to the principles of ALARA. MIP reconstructed images were created and reviewed. CONTRAST: Patient received 115 ML OPTIRAY 320 of IV contrast COMPARISON: None. FINDINGS: Right internal carotid artery: Patent. Right anterior cerebral artery: Patent. Right middle cerebral artery: Patent. Right posterior cerebral artery: Patent. Right vertebral artery: Patent. Left internal carotid artery: Patent. Left anterior cerebral artery: Patent. Left middle cerebral artery: Patent. Left posterior cerebral artery: Patent. Left vertebral artery: Patent. Basilar artery: Patent. Other: Mild atherosclerosis bilateral cavernous ICA without significant stenosis. IMPRESSION: 1. No aneurysm or large vessel occlusion. Electronically signed by: Lynda Momin M.D. 08/12/22 00:26 AM
[2022-08-12] MEDS ORDERED: ACETAMINOPHEN 325 MG TAB PO PRN (02:24)
[2022-08-12] MEDS ORDERED: NITROGLYCERIN SL 0.4 MG/TAB TAB SL PRN (02:24)
[2022-08-12] MEDS ORDERED: POLYETHYLENE (MIRALAX) 17 GM PACK PO PRN (02:24)
[2022-08-12] MEDS ORDERED: PHARMACIST DISCHARGE MED REC CONSULT PRN (02:24)
[2022-08-12] MEDS ORDERED: SODIUM CHLORIDE 0.9% 1000ML 1,000 ML IV SCH (02:24)
[2022-08-12] MEDS: cefTRIAXone SODIUM 1,000 MG in DEXTROSE 5% AD-VAN 50 ML IV SCH (02:57)
--- NOTE | 2022-08-12 03:10 | History and Physical Report ---
DATE OF ADMISSION: 08/11/2022. CHIEF COMPLAINT: TIA symptoms. HISTORY OF PRESENT ILLNESS: This 87-year-old female with past medical history significant for hyperlipidemia, prediabetes, hypertension, patent foramen ovale, supraventricular tachycardia, history of chronic kidney disease stage III, GERD, history of cystocele, generalized osteoarthritis, anemia due to chronic kidney disease stage III, history of TIA in 2017; at that time, she was on aspirin when she had TIA was treated for 3 months of aspirin and Plavix and then Plavix was continued, history of fall in 02/2021 at home and in [facility] ER, found to have trace subarachnoid hemorrhage and transferred to [facility]. She did okay and she was discharged and it looks like Plavix was held for some time. Comes back with TIA-like symptoms. The patient was eating dinner and at the dinner table around 7:30 p.m., she suddenly felt numbness in the left hand her left face was drooping and when she tried to drink water, it came out, but she was able to speak. It lasted for 5 minutes and then it resolved. With family assist, she was able to walk to the parking and after that she was doing fine. Currently, resting comfortably, hemodynamically stable, alert and oriented, able to give her history. Her and daughter are in the room. Denies any headache, no dizziness, no blurred visions, no earache, no runny nose, no sore throat, no cough, no chest pain, no shortness of breath, no fevers, no nausea, no abdominal pain. Normal bowel and bladder movements. Resting comfortably and hemodynamically stable. ALLERGIES: TO ANTIPYRINE, SULFA ANTIBIOTICS, NIACIN. PAST MEDICAL HISTORY: As mentioned above. PAST SURGICAL HISTORY: Biopsy of breast on the left side, colonoscopies, multiple; cystoscopy,cyst removed from left breast, removal of ovaries unilateral, total abdominal hysterectomy with removal of tubes. MEDICATIONS: The patient is on amlodipine 5 mg p.o. a.m., atorvastatin 20 mg p.o. at bedtime, calcium carbonate 500 mg p.o. daily, vitamin p.o. daily, Plavix 75 mg p.o. daily, hydrochlorothiazide 12.5 mg p.o. daily, losartan 25 mg p.o. a.m., metoprolol succinate 25 mg p.o. a.m., omeprazole 20 mg p.o. a.m. FAMILY HISTORY: Significant for sister has breast cancer and colon cancer, hypertension, leukemia, multiple sclerosis, osteoporosis, stroke, uterine cancer; sister's daughter has scleroderma; father had COPD; father had stomach cancer. SOCIAL HISTORY: , lives with her . No smoking. Alcohol, on holidays. No drug use. REVIEW OF SYSTEMS: As per HPI. Rest of review of systems is negative. PHYSICAL EXAMINATION: GENERAL: The patient is of moderate build, not in acute distress. VITAL SIGNS: Temperature 36.7, pulse 80, respiratory rate 16, blood pressure 142/73, oxygen 96% on room air. HEENT: Pupils equal, round and reactive to light. Extraocular muscles intact. No facial droop. Speech is clear. Tongue is midline. Can show her teeth. NECK: No JVD. No carotid bruits. CARDIOVASCULAR: S1 and S2 heard. Regular rate and rhythm. No murmur, no gallop. RESPIRATORY SYSTEM: Normal AP diameter. No accessory muscle use. No wheezing or crackles. ABDOMEN: Soft, bowel sounds present, nontender, no distention. CENTRAL NERVOUS SYSTEM: Alert and oriented. Speech is clear. No facial droop. Extraocular muscles intact. Tongue is midline. Power 5/5 in all extremities. Able to lift and hold her lower extremities. Coordination of movements normal. No pronator drift. Sensation is intact. EXTREMITIES: No edema, no erythema. LABORATORY DATA: WBC 6.3, hemoglobin 12.3, hematocrit 37, platelets 287. PT 10.9, INR 1, APTT 26.1. Sodium 137, potassium 4.5, chloride 105, bicarbonate 26, BUN 22, creatinine 1.4, serum glucose 127, calcium 9.6, magnesium 1.9, total bilirubin 0.3, AST 16, ALT 19, alkaline phosphatase 69. Urinalysis, +1 leukocyte esterase, bacteria negative. SARS-CoV-2 rapid test negative. IMAGING DATA: CTA of the head and neck, mild focal vertebral artery stenosis of approximately 50%. No dissection, occlusion or significant stenosis. CTA of the head, no aneurysm or large vessel occlusion. CTA of the head without contrast, no acute infarct, bleed or acute intracranial abnormality. EKG: Showing normal sinus rhythm, rate of 81, no significant change was found. ASSESSMENT AND PLAN: This is an 87-year-old female who presents with stroke- like symptoms. 1. Stroke-like symptoms, transient ischemic attack. States had left hand numbness and left facial droop for 5 minutes, currently back to her baseline. She has history of TIA in the past, currently on Plavix, we will add aspirin for now. We will get a full stroke workup with MRI scan, echocardiogram, speech evaluation, neuro evaluation in the a.m. PT, OT. Monitor in tele floor. Full liquid diet until seen by speech. 2. History of hypertension. On amlodipine, hydrochlorothiazide, losartan, metoprolol. Holding losartan and hctz for now. Monitor the blood pressure, allow for permissive hypertension. 3. Gastroesophageal reflux disease. Continue omeprazole. 4. Hyperlipidemia. Statin. We will follow the lipid profile. 5. RON on Chronic kidney disease, stage III. Baseline creatinine around 0.9. CR 1.4 today. Getting gentle fluids.Losartan and hctz held. Follow the repeat labs. 6. Possible urinary tract infection. We will empirically start on Rocephin. Follow the cultures. 7. Deep venous thrombosis prophylaxis. SCDs for now. DISPOSITION: Closely monitor in the tele floor. PT, OT prior to discharge. Social service to help with discharge planning. Job ID: [id number] [id number]
[2022-08-12] MEDS ORDERED: GADOBUTROL 65ML VIAL IV ONE (04:23)
[2022-08-12 06:26] LABS: BUN Creatinine Ratio 17.6 (10-20); Calcium 8.7 mg/dl (8.6-10.3); Chol HDL Ratio 2.8 (0-5); Creatinine Clr Calc Pharmacy 35.6 ml/min; Est GFR (African American) 53.5 ml/min; Est GFR (Non-African American) 46.1 ml/min; Potassium 4.1 mmol/L (3.5-5.1)
[2022-08-12 06:27] LABS: Basophils # (auto) 0.02 K/uL (0-0.2); Basophils % (auto) 0.4 %; Eosinophils # (auto) 0.11 K/uL (0-0.50); Hematocrit (blood only) 33.7 % (37.0-47.0); Immature Granulocytes # (auto) 0.01 K/uL (0.01-0.20); Immature Granulocytes % (auto) 0.2 %; Lymphocytes # (auto) 1.86 K/uL (1.2-3.4); Lymphocytes % (auto) 33.9 %; Mean Corpuscular Hemoglobin 29.5 pg (25.0-34.0); Mean Corpuscular Hgb Conc 32.6 g/dL (32.0-36.0); Mean Corpuscular Volume 90.3 fL (80.0-100.0); Mean Platelet Volume 8.9 fL (9.4-12.4); Monocytes # (auto) 0.53 K/uL (0.11-0.59); Monocytes % (auto) 9.7 %; Neutrophils # (auto) 2.95 K/uL (1.40-6.50); Neutrophils % (auto) 53.8 %; Platelet Count 250 K/uL (130-400); RDW Standard Deviation 49.4 fL (36.4-46.3); Red Blood Count 3.73 M/uL (4.20-5.40); White Blood Count 5.48 K/ul (4.8-10.8)
--- NOTE | 2022-08-12 06:56 | Magnetic Resonance Report ---
Exam(s): MRI HEAD W/WO Contrast IV Amt: 7cc gadavist EXAM: MR Head Without and With Intravenous Contrast CLINICAL HISTORY: Reason for exam: stroke like symptoms. TECHNIQUE: Magnetic resonance images of the head/brain without and with intravenous contrast in multiple planes. CONTRAST: Patient received 7cc gadavist of IV contrast COMPARISON: No relevant prior studies available. FINDINGS: Artifact on reformatted coronal imaging limits evaluation. Brain: No evidence of restricted diffusion to suggest an acute ischemic process. Abnormal T2 signal in the deep cerebral white matter is consistent with small vessel ischemic/degenerative changes. The cerebral and cerebellar sulci are prominent consistent with brain atrophy. No hemorrhage. Ventricles: Unremarkable. No ventriculomegaly. Bones/joints: No evidence of abnormal enhancement. Consider postcontrast volumetric T1-weighted imaging if there is further concern. Sinuses: Unremarkable as visualized. Mastoid air cells: Unremarkable as visualized. No mastoid effusion. Orbits: Unremarkable as visualized. IMPRESSION: 1. No evidence of restricted diffusion to suggest an acute ischemic process. 2. Small vessel ischemic/degenerative changes. 3. Cerebral and cerebellar atrophy. 4. No evidence of abnormal enhancement. Consider postcontrast volumetric T1-weighted imaging if there is further concern. Electronically signed by: Raghu King MD 08/12/22 06:56 AM
[2022-08-12 07:04] LABS: Estimated Average Glucose 123 mg/dl; Hemoglobin A1C 5.9 % (4.5-5.6)
[2022-08-12] MEDS: PANTOprazole 40 MG TAB PO SCH ×2 (07:58→07:59)
[2022-08-12] MEDS: CALCIUM CARBONATE 500 MG CHEWABLE TAB PO SCH (08:36)
[2022-08-12] MEDS: CHOLECALCIFEROL 5,000 UNITS 125 MCG TAB PO SCH (08:36)
[2022-08-12] MEDS: ASPIRIN 81 MG ECTAB PO SCH ×2 (08:36→08:45)
[2022-08-12] MEDS: CLOPIDOGREL BISULFATE 75 MG TAB PO SCH (08:36)
[2022-08-12] MEDS: METOPROLOL SUCC 25MG EXT REL TAB PO SCH (08:36)
--- NOTE | 2022-08-12 08:56 | Neurology Consultation ---
Date of Consultation August 12, 2022 Assessment & Plan (1) Left arm numbness: The patient did have a small stroke in the R MCA territory. It appears embolic and without large vessel disease I am concerned about cardioembolism. Echo is pending. Would discharge on zio patch. For now given her age and history of co rtical SAH, would continue plavix only, not DAPT. Agree with lipitor 40mg daily. -- Echo pending -- Plavix 75mg daily monotherapy -- Lipitor 40mg daily -- Zio patch for occult afib -- Neurology follow-up 6-8 weeks -- Please contact us with any further questions. Telehealth Consultation Telehealth Information Telehealth Information: I performed this visit using a real-time telehealth connection between my location and the patients location ([facility]). After connecting through interactive tele-video, patient was identified by name and date of and/or wristband check.Patient (or authorized healthcare patient financial representative) was informed that this was a telemedicine visit and it was being conducted confidentially over secure lines. My office door was closed and no one else was present in the room with me.Patient (or authorized healthcare patient financial representative) provided consent to proceed with the visit, expressed an understanding of privacy and security of the telemedicine visit, and gave permission to have a hospital patient financial representative in the room in order to assist with the visit and to conduct portions of the visit, as needed. I informed the patient (or authorized healthcare patient financial representative) that I reviewed their record and presented the opportunity for them to ask any questions regarding the visit today. The patient agreed to participate. History of Present Illness Reason for Consultation: Transient L sided weakness Requesting Physician: Dr. Mendez Attending Physician: Norma Mendez MD History of Present Illness Amy Jones is an 87 yo F presenting with transient left arm and face weakness yesterday around 730pm. Symptoms subsequently resolved. She denies any recurrence of her weakness, no new vision changes, speech changes, headache, numbness. She has been out of bed without difficulty. No history of stroke in the past but did have a small cortical subarachnoid hemorrhage last year secondary to trauma. Allergies Allergy/AdvReac Type Severity Reaction Status Date / Time antipyrine Allergy Intermediate Rash Verified 08/12/22 00:13 Sulfa (Sulfonamide Allergy Intermediate Rash Verified 08/12/22 00:13 Antibiotics) niacin AdvReac Mild Flushing Verified 08/12/22 00:13 Home Medications Medication Instructions Recorded Confirmed Type amlodipine 5 mg tablet 5 mg PO PM 03/12/19 08/11/22 History clopidogrel 75 mg tablet (Plavix) 75 mg PO QAM 03/12/19 08/11/22 History losartan 25 mg tablet 25 mg PO QAM 03/12/19 08/12/22 History metoprolol succinate 25 mg 25 mg PO QAM 03/12/19 08/11/22 History tablet,extended release 24 hr (Toprol XL) omeprazole 20 mg tablet,delayed 20 mg PO QAM 03/12/19 08/11/22 History release atorvastatin 20 mg tablet 20 mg PO HS 08/11/22 08/11/22 History calcium carbonate 500 mg calcium 500 mg PO DAILY 08/12/22 08/12/22 History (1,250 mg) tablet cholecalciferol (vitamin D3) 125 125 mcg PO DAILY 08/12/22 08/12/22 History mcg (5,000 unit) tablet (Vitamin D3) hydrochlorothiazide 12.5 mg PO DAILY 08/12/22 08/12/22 History Patient History Medical History (Updated 08/12/22 @ 01:19 by Celena Lopez PA-C) GERD (gastroesophageal reflux disease) Hearing deficit HTN (hypertension) Kidney stones Osteoarthritis PFO (patent foramen ovale) Stroke-like symptoms NO ACTUAL STROKE > WENT TO [facility] > UNSURE OF EXACT DATE UTI (urinary tract infection) HX Surgical History History of colonoscopy History of hysterectomy History of left cataract surgery History of tooth extraction Family History Brother Colon cancer Sister Colon cancer Social History Smoking Status: Never smoker Second Hand Exposure: No; Do You Dip or Chew Tobacco: No; Tobacco Cessation Education Requested by Patient: No Hx Alcohol Use: No Hx Substance Use: No Preferred Language: Sami Communication Ability: Effective Insurance Administrative Assistant Required: No Beliefs That Will Affect Care: None Current Living Situation: Spouse Other Information That Helps Us Care for You: No Feels Safe at Home: Yes Safety Concerns: Feels Safe At This Time Assistive Devices: Glasses and Hearing Aid - Bilateral Review of Systems +Left sided weakness Physical Exam Neurological Examination: Mental Status: Awake and alert. Oriented to person, place, and time. Fluent. Comprehension intact. Affect appropriate. Cranial Nerves: II: pupils 3/3 to 2/2 III/IV/: Versions intact without nystagmus, no gaze preference. VII: Facial expression symmetric VIII: Hearing intact to voice IX/X: Palate elevates symmetrically Motor: Strength was symmetric and antigravity throughout. Pronator drift was absent. There were no abnormal movements. Reflexes: Unable to assess over telemedicine Results & Data Vital Signs (Past 12 Hours) Vital Signs Temp Pulse Pulse Resp BP BP BP 08/12/22 07:39 36.8 C 66 17 127/70 08/12/22 03:01 67 08/12/22 02:24 08/12/22 02:24 08/12/22 02:24 36.8 C 69 19 182/83 H 08/12/22 01:39 78 18 117/91 08/11/22 23:59 80 16 142/73 H 08/11/22 22:12 79 08/11/22 22:09 79 18 168/76 H 08/11/22 22:08 79 18 08/11/22 21:38 36.7 C 88 18 118/81 Pulse Ox O2 Del Method O2 Del Method 08/12/22 07:39 94 Room Air 08/12/22 03:01 08/12/22 02:24 Room Air 08/12/22 02:24 Room Air 08/12/22 02:24 97 Room Air 08/12/22 01:39 96 Room Air 08/11/22 23:59 96 Room Air 08/11/22 22:12 08/11/22 22:09 96 Room Air 08/11/22 22:08 97 Room Air 08/11/22 21:38 96 Room Air Laboratory Results Abnormal lab results 08/11/22 08/11/22 08/11/22 Range/Units 21:56 21:56 23:45 RBC 4.11 L (4.20-5.40) M/uL Hgb (12.0-16.0) g/dl Hct (37.0-47.0) % RDW Std Deviation 49.7 H (36.4-46.3) fL RDW Coeff of Eros 15.1 H (11.5-14.5) % MPV 9.0 L (9.4-12.4) fL Chloride (98-107) mmol/L Creatinine 1.41 H (0.6-1.2) mg/dl Glucose 127 H (70-99(Fasting)) mg/dl Hemoglobin A1c (4.5-5.6) % AST 69 H (13-39) U/L Urine Blood 1+ H (Negative) Ur Leukocyte Esterase 1+ H (Negative) Urine WBC (Auto) 5-10 H (0-5) /hpf U Epithel Cells (Auto) 10-20 H (0-5) /lpf 08/12/22 08/12/22 08/12/22 Range/Units 05:22 05:22 05:22 RBC 3.73 L (4.20-5.40) M/uL Hgb 11.0 L (12.0-16.0) g/dl Hct 33.7 L (37.0-47.0) % RDW Std Deviation 49.4 H (36.4-46.3) fL RDW Coeff of Eros 15.0 H (11.5-14.5) % MPV 8.9 L (9.4-12.4) fL Chloride 108 H (98-107) mmol/L Creatinine (0.6-1.2) mg/dl Glucose 107 H (70-99(Fasting)) mg/dl Hemoglobin A1c 5.9 H (4.5-5.6) % AST (13-39) U/L Urine Blood (Negative) Ur Leukocyte Esterase (Negative) Urine WBC (Auto) (0-5) /hpf U Epithel Cells (Auto) (0-5) /lpf Diagnostic Findings CTA - Unremarkable MRI brain - Small cortical infarct in the R MCA territory.
[2022-08-12] MEDS ORDERED: LOSARTAN POTASSIUM 25 MG TAB PO SCH (09:00)
[2022-08-12] MEDS ORDERED: hydroCHLOROthiazide 25 MG TAB PO SCH (09:00)
--- NOTE | 2022-08-12 11:20 | Pharmacy Report ---
- Date of Service August 12, 2022 - Pharmacy CVA/TIA Medication Review Medications to Prevent Stroke handout has been added to the patients discharge packet. Antiplatelet(s) * Clopidogrel 75 mg PO daily * Per Neuro, "given her age and history of cortical SAH, would continue plavix only, not DAPT". Cholesterol * Patient takes atorvastatin 20 mg daily as outpatient. This has been continued inpatient. Neuro recommended 40 mg daily. LDL 56. Will confirm dosing with Hospitalist. DVT Prophylaxis * SCD thigh Therapeutic Anticoagulation * No history of Afib/Aflutter noted Type 2 Diabetes * Patient does not have current diagnosis of T2DM. A1c of 5.9% (this is considered pre-diabetes).
--- NOTE | 2022-08-12 15:37 | Hospitalist Progress Note ---
Date of Service August 12, 2022 Assessment & Plan (1) Acute right MCA stroke: Plan 1. Right MCA stroke: Per record, see had left hand numbness and left facial droop for 5 minutes, currently back to her baseline. She has history of TIA in the past, currently on Plavix,. Speech evaluated. CTA head and neck/CT head/MRI brain reviewed. Patient swallowing diet okay with no trouble. Discussed with neurology, follow-up on echo, continue monotherapy with Plavix for now, Lipitor 40 mg daily and consider Zio patch monitoring as an outpatient with neurology follow-up in 6 to 8 weeks. 2. History of hypertension. On amlodipine, hydrochlorothiazide, losartan, metoprolol. Holding losartan and hctz for now. Monitor the blood pressure, allow for permissive hypertension. 3. Gastroesophageal reflux disease. Continue omeprazole. 4. Hyperlipidemia. Statin. We will follow the lipid profile. 5. RON on Chronic kidney disease, stage III. Baseline creatinine around 0.9. CR 1.4 at presentation. Status post IV fluids, resolved. 6. Possible urinary tract infection. Continue with Rocephin. Follow the cultures. 7. Deep venous thrombosis prophylaxis. Heparin subcu DISPOSITION: Closely monitor in the tele floor. PT, OT prior to discharge. Social service to help with discharge planning. Echo pending. Patient would like to go home tomorrow. Admission and Anticipated Discharge Date Admission Date: August 12, 2022 Subjective Patient seen and examined at bedside as a follow-up of right MCA stroke and UTI. Patient was lying in bed, on room air, NAD, reports improvement in her left facial droop and reports being able to swallow okay, denies headache or dizziness or chest pain or weakness or numbness or tingling. Physical Exam Physical Exam: GENERAL: Alert and oriented x3. NAD, on RA. HEENT: No pallor, no icterus. Pupils equal, round and reactive to light. Oral mucosa moist. NECK: No JVD, no neck masses. HEART: S1 and S2 heard. Regular rate and rhythm. No murmur, no gallop. RESPIRATORY SYSTEM: Normal AP diameter. No accessory muscle use. No wheezing, no crackles. ABDOMEN: Soft, bowel sounds present, nontender, no distention. CENTRAL NERVOUS SYSTEM: No facial droop. Speech is clear. Obeys simple commands. Moves extremities. EXTREMITIES: No edema, no erythema seen. Results & Data Results & Data Vital Signs (Past 12 Hours) Vital Signs Temp Pulse Pulse Resp BP Pulse Ox O2 Del Method 08/12/22 11:32 36.7 C 63 18 137/74 96 Room Air 08/12/22 08:00 56 L 08/12/22 07:39 36.8 C 66 17 127/70 94 Room Air
[2022-08-12 15:53] VITALS: O2SAT 95
--- NOTE | 2022-08-12 19:23 | Electrocardiogram Report ---
Test Reason : Blood Pressure : / mmHG Vent. Rate : 081 BPM Atrial Rate : 081 BPM P-R Int : 170 ms QRS Dur : 078 ms QT Int : 378 ms P-R-T Axes : 046 021 041 degrees QTc Int : 439 ms Normal sinus rhythm When compared with ECG of 22-APR-2018 21:53, No significant change was found Confirmed by Abisai Oliver ([id number]) on 08/12/2022 7:22:51 PM Referred By: REFERRED SELF Confirmed By:Ashkan Oliver
[2022-08-12] MEDS ORDERED: ATORVASTATIN 40 MG TAB PO SCH (21:00)
[2022-08-12] MEDS ORDERED: amLODIPine BESYLATE 5 MG TAB PO SCH (21:00)
[2022-08-12] MEDS ORDERED: ATORVASTATIN 20 MG TAB PO SCH (21:00)
[2022-08-13] MEDS: cefTRIAXone SODIUM 1,000 MG in DEXTROSE 5% AD-VAN 50 ML IV SCH (03:10)
[2022-08-13 06:07] LABS: Basophils # (auto) 0.02 K/uL (0-0.2); Basophils % (auto) 0.4 %; Eosinophils # (auto) 0.14 K/uL (0-0.50); Eosinophils % (auto) 2.7 %; Hematocrit (blood only) 33.9 % (37.0-47.0); Hemoglobin 11.4 g/dl (12.0-16.0); Immature Granulocytes # (auto) 0.01 K/uL (0.01-0.20); Immature Granulocytes % (auto) 0.2 %; Lymphocytes # (auto) 2.21 K/uL (1.2-3.4); Lymphocytes % (auto) 42.1 %; Mean Corpuscular Hemoglobin 29.2 pg (25.0-34.0); Mean Corpuscular Hgb Conc 33.6 g/dL (32.0-36.0); Mean Corpuscular Volume 86.9 fL (80.0-100.0); Monocytes % (auto) 9.5 %; Neutrophils # (auto) 2.37 K/uL (1.40-6.50); Neutrophils % (auto) 45.1 %; Platelet Count 233 K/uL (130-400); RDW Coefficient of Variation 15.1 % (11.5-14.5); RDW Standard Deviation 48.6 fL (36.4-46.3); White Blood Count 5.25 K/ul (4.8-10.8)
[2022-08-13 06:22] LABS: BUN Creatinine Ratio 17.2 (10-20); Calcium 8.6 mg/dl (8.6-10.3); Creatinine Clr Calc Pharmacy 43.9 ml/min; Est GFR (African American) 69.4 ml/min; Est GFR (Non-African American) 59.9 ml/min; Magnesium 1.8 mg/dl (1.7-2.4); Potassium 3.9 mmol/L (3.5-5.1)
[2022-08-13] MEDS: METOPROLOL SUCC 25MG EXT REL TAB PO SCH (09:10)
[2022-08-13] MEDS: PANTOprazole 40 MG TAB PO SCH (09:10)
[2022-08-13] MEDS: CLOPIDOGREL BISULFATE 75 MG TAB PO SCH (09:10)
[2022-08-13] MEDS: CHOLECALCIFEROL 5,000 UNITS 125 MCG TAB PO SCH (09:10)
[2022-08-13] MEDS ORDERED: STROKE PATIENT DISCHARGE STA (11:22)
--- NOTE | 2022-08-13 11:27 | Discharge Summary ---
Date of Service August 13, 2022 Admission HPI Per Admitting Provider CHIEF COMPLAINT: TIA symptoms. HISTORY OF PRESENT ILLNESS: This 87-year-old female with past medical history significant for hyperlipidemia, prediabetes, hypertension, patent foramen ovale, supraventricular tachycardia, history of chronic kidney disease stage III, GERD, history of cystocele, generalized osteoarthritis, anemia due to chronic kidney disease stage III, history of TIA in 2017; at that time, she was on aspirin when she had TIA was treated for 3 months of aspirin and Plavix and then Plavix was continued, history of fall in 02/2021 at home and in [facility], found to have trace subarachnoid hemorrhage and transferred to [place]. She did okay and she was discharged and it looks like Plavix was held for some time. Comes back with TIA-like symptoms. The patient was eating dinner and at the dinner table around 7:30 p.m., she suddenly felt numbness in the left hand her left face was drooping and when she tried to drink water, it came out, but she was able to speak. It lasted for 5 minutes and then it resolved. With family assist, she was able to walk to the parking and after that she was doing fine. Currently, resting comfortably, hemodynamically stable, alert and oriented, able to give her history. Her and daughter are in the room. Denies any headache, no dizziness, no blurred visions, no earache, no runny nose, no sore throat, no cough, no chest pain, no shortness of breath, no fevers, no nausea, no abdominal pain. Normal bowel and bladder movements. Resting comfortably and hemodynamically stable. ALLERGIES: TO ANTIPYRINE, SULFA ANTIBIOTICS, NIACIN. PAST MEDICAL HISTORY: As mentioned above. PAST SURGICAL HISTORY: Biopsy of breast on the left side, colonoscopies, multiple; cystoscopy,cyst removed from left breast, removal of ovaries unilateral, total abdominal hysterectomy with removal of tubes. MEDICATIONS: The patient is on amlodipine 5 mg p.o. a.m., atorvastatin 20 mg p.o. at bedtime, calcium carbonate 500 mg p.o. daily, vitamin p.o. daily, Plavix 75 mg p.o. daily, hydrochlorothiazide 12.5 mg p.o. daily, losartan 25 mg p.o. a.m., metoprolol succinate 25 mg p.o. a.m., omeprazole 20 mg p.o. a.m. FAMILY HISTORY: Significant for sister has breast cancer and colon cancer, hypertension, leukemia, multiple sclerosis, osteoporosis, stroke, uterine cancer; sister's daughter has scleroderma; father had COPD; father had stomach cancer. SOCIAL HISTORY: , lives with her . No smoking. Alcohol, on holidays. No drug use. REVIEW OF SYSTEMS: As per HPI. Rest of review of systems is negative. Admission Exam Per Admitting Provider GENERAL: The patient is of moderate build, not in acute distress. VITAL SIGNS: Temperature 36.7, pulse 80, respiratory rate 16, blood pressure 142/73, oxygen 96% on room air. HEENT: Pupils equal, round and reactive to light. Extraocular muscles intact. No facial droop. Speech is clear. Tongue is midline. Can show her teeth. NECK: No JVD. No carotid bruits. CARDIOVASCULAR: S1 and S2 heard. Regular rate and rhythm. No murmur, no gallop. RESPIRATORY SYSTEM: Normal AP diameter. No accessory muscle use. No wheezing or crackles. ABDOMEN: Soft, bowel sounds present, nontender, no distention. CENTRAL NERVOUS SYSTEM: Alert and oriented. Speech is clear. No facial droop. Extraocular muscles intact. Tongue is midline. Power 5/5 in all extremities. Able to lift and hold her lower extremities. Coordination of movements normal. No pronator drift. Sensation is intact. EXTREMITIES: No edema, no erythema. Principal Diagnosis Acute right MCA stroke Discharge Exam GENERAL: Alert and oriented x3. NAD, on RA. HEENT: No pallor, no icterus. Pupils equal, round and reactive to light. Oral mucosa moist. NECK: No JVD, no neck masses. HEART: S1 and S2 heard. Regular rate and rhythm. No murmur, no gallop. RESPIRATORY SYSTEM: Normal AP diameter. No accessory muscle use. No wheezing, no crackles. ABDOMEN: Soft, bowel sounds present, nontender, no distention. CENTRAL NERVOUS SYSTEM: No facial droop. Speech is clear. Obeys simple commands. Moves extremities. EXTREMITIES: No edema, no erythema seen. Discharge Data Allergies Allergy/AdvReac Type Severity Reaction Status Date / Time antipyrine Allergy Intermediate Rash Verified 08/12/22 00:13 Sulfa (Sulfonamide Allergy Intermediate Rash Verified 08/12/22 00:13 Antibiotics) niacin AdvReac Mild Flushing Verified 08/12/22 00:13 Consultations 08/11/22 23:35 ED Decision to Admit Stat 08/12/22 08:00 Consult Neurology Routine Ordered Studies 08/11/22 23:12 CTA head w con [CT angio head w con] Stat CTA neck with con [CT angio neck with con] Stat Head CT [CT head/brain wo con] Stat 08/12/22 02:24 MR brain wo/w con Routine Hospital Course (1) Acute right MCA stroke: Plan 1. Right MCA stroke: Per record, see had left hand numbness and left facial droop for 5 minutes, currently back to her baseline. She has history of TIA in the past, currently on Plavix,. Speech evaluated. CTA head and neck/CT head/MRI brain reviewed. Patient swallowing diet okay with no trouble. No new weakness or tingling. ECHO reviewed. Discussed with neurology 08/12, continue monotherapy with Plavix for now, Lipitor 40 mg daily and consider Zio patch monitoring as an outpatient with neurology follow-up in 6 to 8 weeks. 2. History of hypertension. On amlodipine, hydrochlorothiazide, losartan, metoprolol. c/w home meds. 3. Gastroesophageal reflux disease. Continue omeprazole. 4. Hyperlipidemia. Statin. We will follow the lipid profile. 5. RON on Chronic kidney disease, stage III. Baseline creatinine around 0.9. CR 1.4 at presentation. Status post IV fluids, resolved. 6. Possible urinary tract infection. Continue with Rocephin. Follow the cultures. 7. Deep venous thrombosis prophylaxis. Heparin subcu Patient being discharged home with following instruction at the point of discharge: Follow-up with your primary care physician within a week time and likely you will need labs CBC/CMP/magnesium/phosphorus. Follow-up with neurology in 6 to 8 weeks. Your Lipitor has been increased to 40 mg daily. Coordinate with your PCP office for Zio Patch monitoring as an outpatient. You will be discharged on antibiotic course to complete UTI treatment, follow-up with final urine culture results with your PCP office in your visit within a week time.. Continue to take your rest of the medications as prior. Please make sure that you are able to get your medications today by calling your pharmacy before you leave the hospital so that your treatment continuity is not broken. Home Health Attestation I certify that this patient is under my care and that I, or a physicians assistant import manager working with me, had a face to-face encounter that meets the home health [id number] encounter requirements with this patient. The encounter with the patient was in whole, or in part, for the following medical condition, which is the primary reason for home health care (list medical condition): I certify that, based on my findings, the following services are medically necessary home health services: My clinical findings support the need for the above services because: Further, I certify that my clinical findings support that this patient is homebound (i.e. absences from home require considerable and taxing effort and are for medical reasons or mormonism services or infrequently or of short duration when for other reasons) because: Certification for Home Health Services: Based on the above findings, I certify that this patient is confined to the home and needs intermittent long-term care, physical therapy and/or speech therapy or continues to need occupational therapy. The patient is under my care, and I have initiated the establishment of the plan of care. This patient will be followed by a physician who will periodically review the plan of care. Total Time Total Time Spent Total Time Spent (In Minutes): 45 Discharge Plan Discharge Items Patient Disposition: Home - Self-Care Reason For Visit: STROKE-LIKE SYMPTOMS Discharge Diagnosis: Acute right MCA stroke Activity: Resume your previous activity Non-emergency contact: Primary Care Provider Call non-emergency contact if: you have any medication questions and your symptoms worsen Follow-up/Referrals: Celia Richard PA-C [Physician Business Job Titles] - (Date & Time 09/30/2022 11:20 AM Provider Celia Richard PA-C Department Neurology [facility] ) Marcia Carreno DO [Primary Care Provider] - (Date & Time 08/20/2022 11:50 AM Provider Marcia Carreno DO Department Family Medicine [facility] ) Diet: Heart Healthy Addtl Attending Provider Instructions: Follow-up with your primary care physician within a week time and likely you will need labs CBC/CMP/magnesium/phosphorus. Follow-up with neurology in 6 to 8 weeks. Your Lipitor has been increased to 40 mg daily. Coordinate with your PCP office for Zio Patch monitoring as an outpatient. You will be discharged on antibiotic course to complete UTI treatment, follow-up with final urine culture results with your PCP office in your visit within a week time.. Continue to take your rest of the medications as prior. Please make sure that you are able to get your medications today by calling your pharmacy before you leave the hospital so that your treatment continuity is not broken. Pending Studies at Discharge: Yes (Urine culture final results.) Stand-Alone Forms: My [facility], Smoking Cessation, Medications to Prevent Stroke Medications and DC Order Prescriptions: New atorvastatin 40 mg Tablet 40 mg PO HS Qty: 30 0RF cephalexin 500 mg capsule 500 mg PO Q8H 5 Days Qty: 15 0RF Probiotic 3 billion cell capsule 3,000 mmu cells PO DAILY 5 Days Qty: 5 0RF Rx Instructions: administer with a meal Continued clopidogrel [Plavix] 75 mg Tablet 75 mg PO QAM amlodipine 5 mg Tablet 5 mg PO PM metoprolol succinate [Toprol XL] 25 mg Tablet Extended Release 24 Hr 25 mg PO QAM omeprazole 20 mg Tablet,Delayed Release (Dr/Ec) 20 mg PO QAM losartan 25 mg Tablet 25 mg PO QAM calcium carbonate [Calcium 500] 500 mg calcium (1,250 mg) Tablet 500 mg PO DAILY cholecalciferol (vitamin D3) [Vitamin D3] 125 mcg (5,000 unit) Tablet 125 mcg PO DAILY hydrochlorothiazide 12.5 mg 12.5 mg PO DAILY Discontinued atorvastatin 20 mg Tablet 20 mg PO HS Discharge Orders: Discharge Order (Routine); Ordered 08/13/22 Ordered By: Norma Castelan/Other Patient Handouts: A1C Admission Data Admit Date/Time: 08/12/22 01:03 Attending Provider: Norma Mendez Admit Provider: Kedar Balderas Primary Care Provider: Marcia Carreno Other Providers: Kedar Balderas
[2022-08-13] MEDS: CALCIUM CARBONATE 500 MG CHEWABLE TAB PO SCH (12:00)
[2022-08-13 12:12] VITALS: PULSE 70; TEMP 97.7
[2022-08-13 12:16] VITALS: BP 117/91
== END 2022-08-13 14:26 | disposition home or self-care (01) | DRG 65 ==
LOC: ED 21:34 → 4W 08-12 01:03